=== PATIENT | female | born 1985 | race Caucasian/White ===

== ENCOUNTER → 2016-06-29 | Outpatient (CLI) | payer OTHER ==
[~2016-06-29] MED LIST: ACET50TA PO; IBUP600T26 PO; MOM30SS PO
[2016-06-29 20:34] LABS: BASO % 0.5 % (0.0-1.0); EOS # 0.4 K/mm3 (0.0-0.50); LARGE UNSTAINED CELL # 0.1 K/mm3 (0.0-0.4); LARGE UNSTAINED CELL % 1.6 % (0.0-4.0); LYMPH # 1.5 K/mm3 (1.5-4.5); LYMPH % 16.8 % (24.0-44.0); MEAN CORPUSCULAR HEMOGLOBIN 30.3 pg (27.0-33.0); MEAN CORPUSCULAR HGB CONC 34.2 g/dl (32.0-36.5); MEAN CORPUSCULAR VOLUME 88.8 fl (80.0-96.0); MONO # 0.3 K/mm3 (0.0-0.8); MONO % 3.7 % (0.0-5.0); NEUTROPHILS # 6.3 K/mm3 (1.8-7.7); NEUTROPHILS % 72.4 % (36.0-66.0); PLATELET COUNT, AUTOMATED 261 k/mm3 (150-450); RED CELL DISTRIBUTION WIDTH 11.7 % (11.5-14.5)
[2016-06-30 10:18] LABS: HIV SCRN NEGATIVE (NEGATIVE)
[2016-06-30 10:19] LABS: CONTROL LINE INT CTR LINE PRESENT; HIV SCRN1 NEGATIVE (NEGATIVE)
[2016-07-02 11:01] LABS: WHITE BLOOD COUNT 8.7 K/mm3 (4.0-10.0)
== END ==
LOC: M LRY 15:27
PROVIDERS: ATTEND Advanced Practice Midwife
DX: Z36 Encounter for antenatal screening of mother (principal)

== ENCOUNTER → 2016-07-11 | Outpatient (CLI) | payer OTHER ==
--- NOTE | 2016-07-12 04:39 | REP ---
Clinical: Anatomical evaluation. Comparison: None . Findings: Examination demonstrates a single live intrauterine in breech presentation. motion is identified by technologist. Placenta is noted anteriorly and grade zero without evidence for placenta previa or abruption. Amniotic fluid volume is normal. Cervix measures 4.1 cm in length and appears closed. No evidence for nuchal cord. Gestational age by LMP 16 weeks 3 days with CAMDEN 12/23/2016 . Gestational age by current measurements 17 weeks 1 day with [facility]DEN 12/18/2016 . FHR equals 153 beats per minute. BPD 3.7 cm 17 weeks 1 day HC 13.5 cm 17 weeks 0 days AC 11.5 cm 17 weeks 2 days FL 2.5 cm 17 weeks 4-day HL 2.3 cm 17 weeks 0 days HC/AC ratio 1.17 Estimated weight 191 grams ( 86 percentile). Anatomical assessment demonstrates normal structures including cranium, choroid plexus, cavum, cerebellum/posterior fossa, lungs, diaphragm, stomach, cord insertion/three-vessel cord, kidneys/bladder, spine, and extremities. Impression: Single live intrauterine in breech presentation demonstrating appropriate interval growth. Anatomical assessment is somewhat limited due to gestational age and repeat evaluation/follow-up may be warranted. Signed by German Mccarty MD 07/12/2016 04:30 A
== END ==
LOC: M SMT 15:01
PROVIDERS: ATTEND Advanced Practice Midwife
DX: Z36 Encounter for antenatal screening of mother (principal); Z3A.17 17 weeks gestation of pregnancy

== ENCOUNTER → 2016-08-06 | Outpatient (REF) | payer OTHER | LOC: M LAB REF 17:31 | PROVIDERS: ATTEND Advanced Practice Midwife | DX: Z34.82 Encounter for supervision of other normal pregnancy, second trimester (principal) ==

== ENCOUNTER → 2016-08-13 | Outpatient (CLI) | payer OTHER ==
--- NOTE | 2016-08-13 11:20 | REP ---
Clinical: Anatomical evaluation. Comparison: 07/11/2016. Findings: Examination demonstrates a single live intrauterine in variable presentation. motion is identified by technologist. Placenta is low-lying (approximately 2 cm from the closed internal os) and noted anteriorly and grade zero without evidence for placenta previa or abruption. Amniotic fluid volume is normal. Cervix measures 3.5 cm in length and appears closed. No evidence for nuchal cord. Gestational age by LMP 21 weeks 1 day with CAMDEN 12/23/2016 . Gestational age by current measurements 21 weeks for the with CAMDEN is 12/20/2016 . FHR equals 150 beats per minute. Estimated weight 466 grams ( 77th percentile). Anatomical assessment demonstrates normal structures including cranium, choroid plexus, cavum, cerebellum/posterior fossa, facial features, lungs, four-chamber heart/ventricular outflow tracts, diaphragm, stomach, cord insertion/three-vessel cord, kidneys/bladder, spine, and extremities. Impression: 1. Anterior grade zero low-lying placenta 2 cm from the closed internal os. 2. Fetus demonstrates appropriate interval growth and normal complete anatomical assessment. Signed by German Mccarty MD 08/13/2016 11:11 A
== END ==
LOC: M SMT 09:45
PROVIDERS: ATTEND Advanced Practice Midwife
DX: Z36 Encounter for antenatal screening of mother (principal); Z3A.21 21 weeks gestation of pregnancy

== ENCOUNTER → 2016-10-09 | Outpatient (CLI) | payer OTHER ==
[2016-10-09 13:21] LABS: MEAN CORPUSCULAR HEMOGLOBIN 30.5 pg (27.0-33.0); MEAN CORPUSCULAR HGB CONC 33.1 g/dl (32.0-36.5); MEAN CORPUSCULAR VOLUME 92.3 fl (80.0-96.0); RED CELL DISTRIBUTION WIDTH 12.6 % (11.5-14.5); WHITE BLOOD COUNT 9.8 K/mm3 (4.0-10.0)
== END ==
LOC: M SMT 08:27
PROVIDERS: ATTEND Advanced Practice Midwife
DX: Z36 Encounter for antenatal screening of mother (principal)

== ENCOUNTER → 2016-10-24 | Outpatient (CLI) | payer OTHER ==
--- NOTE | 2016-10-25 05:19 | REP ---
Clinical: Suspected placenta previa. Comparison: 08/13/2016 . Findings: Examination demonstrates a single live intrauterine in transverse presentation. motion is identified by technologist. Placenta is noted anteriorly and grade zero without evidence for placenta previa or abruption. Placental tip is 4.2 cm from the closed internal os. Amniotic fluid volume is normal. Cervix measures 3.6 cm in length and appears closed. FHR equals 141 beats per minute. Impression: Advanced gestation in transverse lie. Anterior placenta without evidence for placenta previa. Cervix measures 3.6 cm in length and appears closed. Signed by German Mccarty MD 10/25/2016 05:11 A
== END ==
LOC: M SMT 13:57
PROVIDERS: ATTEND Obstetrics & Gynecology
DX: Z34.83 Encounter for supervision of other normal pregnancy, third trimester (principal)

== ENCOUNTER 2016-12-27 05:38 | Inpatient (IN) | payer OTHER ==
[2016-12-27] VITALS (30 sets, daily range): BP systolic 88–157; BP diastolic 52–85; O2SAT 94–100
[~2016-12-27] VITALS: Ht 152.4 cm; Wt 74.3 kg
[2016-12-27] MEDS ORDERED: PRENTAB9 PO (06:03)
[2016-12-27] MEDS ORDERED: PENICILLIN G POTASSIUM IV 5 MU in D5W MINI-BAG PLUS 100 ML IV STA (06:12)
[2016-12-27 06:47] LABS: MEAN CORPUSCULAR HEMOGLOBIN 31.4 pg (27.0-33.0); MEAN CORPUSCULAR HGB CONC 34.9 g/dl (32.0-36.5); MEAN CORPUSCULAR VOLUME 89.9 fl (80.0-96.0); RED CELL DISTRIBUTION WIDTH 12.2 % (11.5-14.5); WHITE BLOOD COUNT 9.6 K/mm3 (4.0-10.0)
--- NOTE | 2016-12-27 06:47 | HPE ---
DATE OF ADMISSION: 12/27/2016 HISTORY OF PRESENT ILLNESS: Inocencia is a 31-year-old 3, para 1-0-1-1 at 40-4/7 weeks gestation with an estimated date of confinement (EDC) of 12/23/2016, based on last menstrual period and confirmed and supported by second trimester ultrasound. She presents to labor and delivery today with report of spontaneous rupture of membranes at 0430, reports the fluid is clear and does report some cramping prior to rupture and following rupture. There is no vaginal bleeding and the fetus has been active. care was initiated at [facility] in the second trimester. course complicated by group B streptococcus (GBS) bacteruria, low-lying placenta which resolved by the third trimester. OBSTETRICAL HISTORY: Spontaneous miscarriage, and then in January 2013, she had a spontaneous vaginal delivery for a live male at 42 weeks gestation weighing 8 pounds 12 ounces. OBSTETRICAL LABORATORIES: Blood type is A positive, antibody screen negative, rubella immune, VDRL nonreactive, GBS in the urine. Hepatitis B surface antigen negative, HIV negative. Hepatitis C antibody nonreactive, gonorrhea and chlamydia negative. Urine culture with no growth. She did decline genetic serum screening markers. Gestational diabetic screening normal at 102, and positive GBS as previously stated. PAST MEDICAL HISTORY: Seasonal allergies. Childhood varicella. FAMILY HISTORY: Diabetes, hypertension, heart disease, anxiety, brain tumor and brain aneurysm. SOCIAL HISTORY: The patient is . Her is at bedside and supportive. She is a nonsmoker. Denies alcohol and drug use. No history of any sexually transmitted infections. Denies history of abuse physical, sexual and emotional allergies. ALLERGIES: No known drug allergies CURRENT MEDICATIONS: vitamin OBJECTIVE: Temperature 98.4, pulse 88, blood pressure is 132/70. She is alert and oriented times three. She does not seem to be in any apparent distress. heart rate is 120 with moderate variability, positive accelerations, no decelerations, contractions every 4 minutes. She is grossly ruptured, appears to be clear fluid, potentially with mucus. Abdomen is gravid, cephalic presentation which was confirmed by bedside ultrasound. Estimated weight 8 pounds. Sterile vaginal exam 3-4 cm dilated, 50% effaced, and minus two station. ASSESSMENT: Intrauterine at 40-4/7 weeks gestation. heart rate category one. Premature rupture of membranes. PLAN: Admit the patient to labor and delivery. Labs. Out of bed ad edinson. Start intravenous (IV) antibiotics for group B streptococcus (GBS) prophylaxis. The patient does desire hydrotherapy and out of bed activity to cope with her labor physiologically. I do anticipate labor progress and a spontaneous vaginal delivery. Once she is treated appropriately for GBS, we will consider augmentation with IV Pitocin. MTDD
[2016-12-27] MEDS ORDERED: PENICILLIN G POTASSIUM IV 2.5 MU in D5W 100 ML IV SCH (11:00)
[2016-12-27] MEDS ORDERED: OXYTOCIN 30 UNITS IN 0.9% NaCl 500ML IV BAG (J2590) As Ordered ONE (11:52)
[2016-12-27] MEDS ORDERED: ceFAZolin 2 GM/D5W 50 ML IV BAG (J0690) As Ordered ONE (13:01)
[2016-12-27] MEDS ORDERED: BICITRA 30ML SOLN UDC As Ordered ONE (13:02)
[2016-12-27] MEDS ORDERED: PROPOFOL 200 MG/20 ML VIAL As Ordered ONE ×2 (13:14→16:56)
[2016-12-27] MEDS ORDERED: SUCCINYLCHOLINE 100 MG/5 ML SYRINGE (J0330) As Ordered ONE (13:14)
[2016-12-27] MEDS ORDERED: OXYTOCIN INJ 10 UNITS/ML VIAL (J2590) As Ordered ONE (13:14)
[2016-12-27] MEDS ORDERED: fentaNYL 100 MCG/2 ML INJECTION (J3010) As Ordered ONE ×4 (13:20→18:48)
[2016-12-27 13:28] LABS: CORD GAS ABE A -2.9; CORD GAS HCO3 A 24.7 MEQ/L; CORD GAS O2 SAT A 36.7 %; CORD GAS PH A 7.279 UNITS; CORD GAS PO2 A 18.6 mmHg; CORD GAS SBC A 20.5 MEQ/L; CORD GAS TCO2 A 26.4 MEQ/L
[2016-12-27 13:31] LABS: CORD GAS HCO3 V 22.2 MEQ/L; CORD GAS O2 SAT V 68.2 %; CORD GAS PCO2 V 44.5 mmHg; CORD GAS PH V 7.316 UNITS; CORD GAS PO2 V 29.2 mmHg; CORD GAS SBC V 20.4 MEQ/L; CORD GAS TCO2 V 23.6 MEQ/L
[2016-12-27] MEDS ORDERED: KETOROLAC 60 MG/2 ML VIAL (J1885) As Ordered ONE (13:31)
[2016-12-27] MEDS ORDERED: ONDANSETRON 4MG/2ML VIAL (J2405) As Ordered ONE (13:31)
[2016-12-27] MEDS ORDERED: LR 1,000 ML IV SCH ×2 (13:56→14:30)
[2016-12-27] MEDS ORDERED: DOCUSATE SODIUM 100 MG CAP PO PRN (14:00)
[2016-12-27] MEDS ORDERED: PERCOCET 5MG/325MG TAB PO PRN ×2 (14:00→14:30)
[2016-12-27] MEDS ORDERED: MEASLES,MUMPS,RUBELLA VACCINE INJ (MMR-II) (90707) SC SCH (14:00)
[2016-12-27] MEDS ORDERED: OXYTOCIN DRIP 30 UNITS in APPROPRIATE DILUENT 1 EA IV ONE (14:00)
[2016-12-27] MEDS ORDERED: RHOGAM 300 MCG (1500 IU) INJ (J2790) IM SCH (14:00)
[2016-12-27] MEDS ORDERED: NS 1,000 ML IV SCH ×3 (14:01→16:34)
[2016-12-27] MEDS ORDERED: EPIDURAL/PCA KEYS XX PRN (14:15)
[2016-12-27] MEDS ORDERED: MORPHINE 1MG/ML IN 0.9% NACL 100ML IV BAG IV PRN (14:15)
[2016-12-27] MEDS ORDERED: diphenhydrAMINE INJ 50MG/ML VIAL (J1200) IV PRN (14:15)
[2016-12-27] MEDS ORDERED: NALOXONE INJ 0.4 MG/1 ML VIAL (J2310) IV PRN (14:15)
[2016-12-27] MEDS ORDERED: NALBUPHINE HCL 10 MG/ML AMP (J2300) IV PRN (14:15)
[2016-12-27] MEDS ORDERED: MEPERIDINE INJ 25 MG/ML VIAL (J2175) As Ordered ONE (14:18)
[2016-12-27] MEDS: MEPERIDINE INJ 25 MG/ML VIAL (J2175) IV PRN ×2 (14:20→14:25)
[2016-12-27] MEDS ORDERED: ONDANSETRON 4MG/2ML VIAL (J2405) IV PRN (14:30)
[2016-12-27] MEDS ORDERED: HYDROmorphone HCL 1 MG/ML SYRINGE (J1170) IV PRN (14:30)
[2016-12-27] MEDS ORDERED: fentaNYL 100 MCG/2 ML INJECTION (J3010) IV PRN ×2 (14:30→19:15)
[2016-12-27] MEDS ORDERED: miSOPROStol 200 MCG TAB (S0191) As Ordered ONE (14:31)
[2016-12-27] MEDS ORDERED: METHYLERGONOVINE MALEATE 0.2 MG/ML VIAL (J2210) As Ordered ONE ×2 (14:31→15:22)
[2016-12-27] MEDS ORDERED: METHYLERGONOVINE MALEATE 0.2 MG/ML VIAL (J2210) IM ONE ×2 (15:00→17:00)
[2016-12-27] MEDS ORDERED: miSOPROStol 200 MCG TAB (S0191) PR ONE (15:00)
[2016-12-27 15:29] LABS: MEAN CORPUSCULAR HEMOGLOBIN 30.5 pg (27.0-33.0); MEAN CORPUSCULAR HGB CONC 33.1 g/dl (32.0-36.5); RED CELL DISTRIBUTION WIDTH 12.3 % (11.5-14.5); WHITE BLOOD COUNT 23.9 K/mm3 (4.0-10.0)
[2016-12-27] MEDS ORDERED: ceFAZolin 1GM INJ (J0690) As Ordered ONE (16:46)
[2016-12-27] MEDS ORDERED: LIDOCAINE 2% INJ 100 MG/5 ML SDV (FOR ANES.) As Ordered ONE (16:56)
[2016-12-27] MEDS ORDERED: ROCURONIUM BROMIDE 50 MG/5 ML VIAL/SYRINGE As Ordered ONE (16:56)
[2016-12-27] MEDS ORDERED: MIDAZOLAM INJ 2 MG/2 ML VIAL (J2250) As Ordered ONE (16:56)
[2016-12-27] MEDS ORDERED: PHENYLEPHRINE INJ 10MG/ML VIAL (J2370) As Ordered ONE (17:28)
[2016-12-27] MEDS ORDERED: PHENYLephrine HCL 500 MCG/5 ML (100MCG/ML) SYRINGE (J2370) As Ordered ONE (17:28)
[2016-12-27 18:28] LABS: ABG HCO3 11.6 MEQ/L (22.0-26.0); ABG PARTIAL PRESSURE CO2 41.6 mmHg (35.0-45.0); ABG PARTIAL PRESSURE O2 211.1 mmHg (75.0-100.0); ABG STANDARD HCO3 11.1 MEQ/L (22.0-26.0); ABG TOTAL CO2 12.9 MEQ/L (22.0-29.0)
[2016-12-27 18:31] LABS: ABG pH (ARTERIAL) 7.063 UNITS (7.350-7.450)
[2016-12-27] MEDS ORDERED: FUROSEMIDE 100 MG/10 ML VIAL (J1940) As Ordered ONE (18:45)
[2016-12-27 18:54] LABS: ADD MANUAL DIFFER YES; DIFF SLIDE NUMBER 313; MEAN CORPUSCULAR HEMOGLOBIN 29.2 pg (27.0-33.0); MEAN CORPUSCULAR HGB CONC 32.4 g/dl (32.0-36.5); MEAN CORPUSCULAR VOLUME 90.2 fl (80.0-96.0); PLATELET COUNT, AUTOMATED 144 k/mm3 (150-450); RED CELL DISTRIBUTION WIDTH 15.7 % (11.5-14.5); WHITE BLOOD COUNT 17.5 K/mm3 (4.0-10.0)
[2016-12-27 18:56] LABS: INR 1.64
[2016-12-27] MEDS: NOREPINEPHRINE BITARTRATE 8 MG in D5W 500 ML IV SCH (19:15)
[2016-12-27 19:18] LABS: ALBUMIN 1.4 GM/DL (3.2-5.2); ALBUMIN/GLOBULIN RATIO 0.82 (1.00-1.93); ALKALINE PHOSPHATASE 62 U/L (45-117); ALT/SGPT 121 U/L (12-78); ANION GAP 16 MEQ/L (8-16); AST/SGOT 155 U/L (15-37); BILIRUBIN,TOTAL 0.5 MG/DL (0.2-1.0); BLOOD UREA NITROGEN 9 MG/DL (7-18); CALCIUM LEVEL 10.4 MG/DL (8.5-10.1); CARBON DIOXIDE LEVEL 15 MEQ/L (21-32); CHLORIDE LEVEL 116 MEQ/L (98-107); CREATININE FOR GFR 0.92 MG/DL (0.55-1.02); GLOMERULAR FILTRATION RATE > 60.0 (>60); GLUCOSE, FASTING 314 MG/DL (70-105); MAGNESIUM LEVEL 2.2 MG/DL (1.8-2.4); POTASSIUM SERUM 4.4 MEQ/L (3.5-5.1); SODIUM LEVEL 147 MEQ/L (136-145); TOTAL PROTEIN 3.1 GM/DL (6.4-8.2)
[2016-12-27 19:30] LABS: ABG BASE EXCESS -14.5 (-2.0-2.0); ABG HCO3 14.6 MEQ/L (22.0-26.0); ABG PARTIAL PRESSURE CO2 45.8 mmHg (35.0-45.0); ABG STANDARD HCO3 13.4 MEQ/L (22.0-26.0)
[2016-12-27 19:33] LABS: ABG PARTIAL PRESSURE O2 49.1 mmHg (75.0-100.0); ABG pH (ARTERIAL) 7.122 UNITS (7.350-7.450)
[2016-12-27 19:37] LABS: ANISOCYTOSIS 1+; BANDS 13 % (< 11); NUCLEATED RED BLOOD CELL 2 % (0-0); POIKILOCYTOSIS 1+; POLYCHROMASIA 1+
[2016-12-27 19:38] LABS: ACANTHOCYTES 2+
[2016-12-27 19:39] LABS: OVALOCYTES 1+
[2016-12-27 19:53] LABS: ABG BASE EXCESS -10.7 (-2.0-2.0); ABG HCO3 16.2 MEQ/L (22.0-26.0); ABG PARTIAL PRESSURE CO2 39.2 mmHg (35.0-45.0); ABG PARTIAL PRESSURE O2 61.2 mmHg (75.0-100.0); ABG STANDARD HCO3 16.2 MEQ/L (22.0-26.0); ABG TOTAL CO2 17.4 MEQ/L (22.0-29.0)
[2016-12-27] MEDS: PIPERACILLIN/TAZOBACTAM SOD 3.375 GM in D5W MINI-BAG PLUS 50 ML IV SCH (19:55)
[2016-12-27 19:56] LABS: ABG pH (ARTERIAL) 7.233 UNITS (7.350-7.450)
[2016-12-27] MEDS ORDERED: KETOROLAC 30 MG/ML VIAL (J1885) IV SCH (20:00)
[2016-12-27] MEDS ORDERED: MORPHINE 2 MG/ML 1ML SYRINGE IV PRN (20:15)
--- NOTE | 2016-12-27 20:20 | REP ---
HISTORY: Stat section. COMPARISON: None. The tip of the endotracheal tube is in satisfactory position at the level of the clavicular heads. The nasogastric tube is seen coursing the esophagus and the tip is coiled within the stomach. There is near complete opacification of the right lung with scattered air bronchograms consistent with florid right-sided edema. More patchy appearing airspace opacities are seen throughout the left lung which was not completely imaged on this AP exam. The technique utilized in obtaining the radiograph has magnified the cardiac silhouette and accentuated the interstitial markings. The cardiomediastinal silhouette is within normal limits. The osseous structures are within normal limits. IMPRESSION: Asymmetric pulmonary edema, cause uncertain. Pneumonia versus cardiogenic causes versus renal causes. Correlate clinically. Signed by Antonio Gomez DO 12/28/2016 10:38 A
--- NOTE | 2016-12-27 20:26 | PHACANCOPD ---
PHARMACY VANCOMYCIN DOSING Pt Demographics Demographics Patient Age:31 , Weight:73.000 , Gender: female Adjusted Body Weight Date: 12/27/16, Adjusted Body Weight: Kg Events Past 24 Hours Events Past 24 Hours: NO: Dialysis, Diuretic Therapy, Change in CrCl, Fever, Elevation in WBC, Pending Diagnostics, Pending Procedures, Other Vancomycin Vancomycin indication: SEPSIS Vancomycin Target Ranges: 15-20 mcg/ml Vancomycin Load Y/N: Yes Load Dose Date Time Vancomycin Load Dose: 1500MG Date: Time: @2100 Vancomycin Dose Date: 12/28/16. Current Vancomycin Dose: [1000MG IV Q8H @ 0600] Intermittent Dosing?: No Labs Labs Item Value Date Time White Blood Count 17.5 K/mm3 H 12/27/16 0000 White Blood Count 9.6 K/mm3 12/27/16 0620 White Blood Count 23.9 K/mm3 H 12/27/16 1508 Creatinine 0.92 MG/DL 12/27/16 0000 Micro Microbiology 12/27/16 Blood Culture, Received Pending Creatinine Clearance Date:12/27/16. Creatinine Clearance: [82.2 MLS/MIN]. Pending Labs VANCO TROUGH 12/28/16 @ 2100 Assessment and Plan Maintaining Current Dose?: Yes Reason for dose change: No Dose Change Pharmacist Note Pharmacist Note Date: 12/27/16. Pharmacist note: Patient was given a 1500 mg loading dose @ 2100 followed by 1 gram q 8hours. Trough is scheduled to be drawn after 3 doses (01/07 @ 2100). Continue to monitor renal function and adjust dose as needed. [facility] Dec 27, 2016 20:26
[2016-12-27] MEDS ORDERED: MAGNESIUM SULFATE 1 GM/100 ML D5W BAG (10MG/ML) (J3475) ONE (20:28)
[2016-12-27] MEDS ORDERED: AMIODARONE 150MG/3ML INJ (J0282) ONE (20:28)
[2016-12-27] MEDS ORDERED: CALCIUM CHLORIDE 10% 1 GM/10 ML SYR ONE (20:28)
[2016-12-27] MEDS ORDERED: EPINEPHrine 1MG/10ML SYRINGE 1.5IN ONE (20:28)
[2016-12-27] MEDS ORDERED: NOREPINEPHRINE 4 MG/4 ML AMP ONE (20:28)
[2016-12-27] MEDS ORDERED: SODIUM BICARBONATE 8.4% INJ 50 ML SYRINGE ONE (20:28)
[2016-12-27 20:30] LABS: MEAN CORPUSCULAR HEMOGLOBIN 29.5 pg (27.0-33.0); MEAN CORPUSCULAR HGB CONC 33.3 g/dl (32.0-36.5); MEAN CORPUSCULAR VOLUME 88.5 fl (80.0-96.0); RED CELL DISTRIBUTION WIDTH 15.1 % (11.5-14.5)
[2016-12-27 20:31] LABS: WHITE BLOOD COUNT 33.2 K/mm3 (4.0-10.0)
[2016-12-27 20:33] LABS: INR 1.32
[2016-12-27] MEDS: MIDAZOLAM INJ 2 MG/2 ML VIAL (J2250) IV PRN ×3 (20:34→21:22)
--- NOTE | 2016-12-27 20:40 | RO ---
DATE OF PROCEDURE: 12/27/2016 PREPROCEDURE DIAGNOSIS: Hypovolemic shock. POSTPROCEDURE DIAGNOSIS: Hypovolemic shock. PROCEDURE: Emergent left internal jugular (IJ) triple lumen central line. SURGEON: Dr. Fadia Rivera HISTORY TUTOR: None ANESTHESIA: 1% local lidocaine. REASON FOR PROCEDURE: Shock. ESTIMATED BLOOD LOSS: 10 mL. SEDATION: 2 mg of Versed IV push. VENTILATION: Patient on a ventilator with AC volume control, 14, 400, 100%, PEEP of 8. DESCRIPTION OF PROCEDURE: The patient was placed in Trendelenburg position. The left side of the patient's neck was cleaned with Chloraprep. Time-out was done, and the patient was covered in a sterile fashion. Ultrasound with sterile probe cover was used. The patient's left IJ was located and 1% local lidocaine was injected subcutaneously with ultrasound guidance. Subsequently, needle was inserted with ultrasound guidance. Flash of blood was obtained. Guidewire was inserted through the needle and needle was removed. Guidewire position was confirmed with the ultrasound. Subsequently, the site was dilated and triple lumen central line was inserted via Seldinger technique over guidewire and guidewire was removed. Triple lumen central line was secured with clamps and stitches. Dressing was placed. X-ray was ordered for confirmation. The patient tolerated the procedure with no complication. LANDON
[2016-12-27] MEDS ORDERED: LR 1,000 ML IV ONE (20:45)
[2016-12-27] MEDS ORDERED: REFRIGERATOR IV KEYS XX PRN (20:45)
--- NOTE | 2016-12-27 20:50 | IPN ---
DATE: 12/27/2016 MAX CART NOTE TIME: 1748 Max cart called in the operating room (OR). Physician was told that patient previously earlier in the day had a section with persistent uterine bleed. Subsequently was taken to the OR for hysterectomy. In the process, patient went into ventricular tachycardia. Subsequently was shocked. On arrival, patient was in ventricular tachycardia with an arterial (A) line pressure of 200/110s. Amiodarone 300 mg intravenous (IV) push was given, 2 mg of magnesium was given. IV bolus was started as well as massive transfusion protocol was activated. At 175 patient went into pulseless electrical activity (PEA) with A-line tracing that lost blood pressure. Subsequently, cardiopulmonary resuscitation (CPR) was started. Epinephrine was given with return of spontaneous circulation on A-line tracing, and on palpation and with heart rhythm of supraventricular tachycardia (SVT). Mauro-Synephrine pressor was prepared but was on hold. Patient was given IV boluses and packed red blood cells (PRBC) transfusion. Fresh frozen plasma (FFP) and platelets have also been ordered as part of massive transfusion protocol, and surgery was proceeded. At 180 patient's A-line tracing lost pressure. Subsequently went into PEA. CPR started. One round of epinephrine was given with return of spontaneous circulation with heart rhythm of SVT. At 181, patient went into PEA again. Subsequently epinephrine was given. At this time, two rounds of epinephrine was given with return of spontaneous circulation as well. Surgery was continued. At 181, patient went into PEA again. Epinephrine was given as well as bicarbonate and calcium chloride, given patient has been receiving significant quantity of blood products. Calcium chloride was given. Patient had a return of spontaneous circulation with supraventricular tachycardia, at which time it was noticed that patient's endotracheal (ET) tube was putting out frothy, pink fluids. Patient was thought to be possibly in flash pulmonary edema given the amount of fluids and blood products that had been given, and with blood pressure after last resuscitation ranging at 160/100, Lasix 40 IV push was given. At 182, patient went into PEA again. Epinephrine was given. At this time, patient required a total of three rounds of epinephrine to have a return of spontaneous circulation. Sodium bicarbonate 1 amp was given along with calcium chloride. Patient subsequently had spontaneous return of circulation, at which point, with a blood pressure on A-line tracing of 150/110, all fluids and blood transfusion have been on hold given patient has been putting out pink, frothy secretions from the ET tube, believed to be in flash pulmonary edema. Lasix another 40 was given, and patient's incision had been closed at that point in preparation to be transferred to intensive care unit (ICU), persistently in supraventricular tachycardia. At 1859, patient had a dip of blood pressure. Subsequently 1 amp of epinephrine was given with blood pressure that is resolving. Subsequently Levophed 10 mcg was started. Patient was transferred to ICU. Around 1900 patient was transferred to ICU. At 1915, in the process, an emergent right cordis was placed for massive transfusion. Patient received approximately a total of 8 units PRBC, 2 units of FFP, and about 2 units of platelets.
[2016-12-27 21:00] LABS: BLOOD UREA NITROGEN 10 MG/DL (7-18); CREATININE FOR GFR 1.03 MG/DL (0.55-1.02); GLOMERULAR FILTRATION RATE > 60.0 (>60); GLUCOSE, FASTING 262 MG/DL (70-105); SODIUM LEVEL 144 MEQ/L (136-145)
[2016-12-27] MEDS ORDERED: VANCOMYCIN HCL 500 MG in D5W MINI-BAG PLUS 100 ML IV ONE (21:00)
[2016-12-27 21:16] LABS: ANION GAP 13 MEQ/L (8-16); CALCIUM LEVEL 9.1 MG/DL (8.5-10.1); CARBON DIOXIDE LEVEL 19 MEQ/L (21-32); CHLORIDE LEVEL 112 MEQ/L (98-107); MAGNESIUM LEVEL 1.8 MG/DL (1.8-2.4); PHOSPHORUS LEVEL 5.6 MG/DL (2.5-4.9)
[2016-12-27] MEDS: CHLORHEXIDINE GLUCONATE 0.12 % 15ML UDC (PERIDEX ORAL RINSE) MT SCH (21:23)
[2016-12-27] MEDS: MIDAZOLAM HCL 100 MG in D5W 80 ML IV SCH (21:30)
[2016-12-27] MEDS: LR 1,000 ML IV SCH (21:47)
[2016-12-27 21:54] LABS: ABG BASE EXCESS -8.9 (-2.0-2.0); ABG PARTIAL PRESSURE CO2 36.9 mmHg (35.0-45.0); ABG PARTIAL PRESSURE O2 55.8 mmHg (75.0-100.0); ABG STANDARD HCO3 17.3 MEQ/L (22.0-26.0); ABG TOTAL CO2 18.1 MEQ/L (22.0-29.0); ABG pH (ARTERIAL) 7.281 UNITS (7.350-7.450)
[2016-12-27] MEDS ORDERED: DEXTROSE 50% 50 ML SYRINGE IV PRN (22:15)
[2016-12-27] MEDS ORDERED: GLUCAGON FOR INJ 1 MG VIAL (J1610) SC PRN (22:15)
[2016-12-27] MEDS ORDERED: GLUCOSE 4 GM CHEW TABLET PO PRN (22:15)
[2016-12-27] MEDS: VANCOMYCIN HCL 1,000 MG, VIAL MATE ADAPTER 1 EACH in D5W 250 ML IV SCH (22:35)
[2016-12-27] MEDS: KCL 20MEQ IN 100ML SWI (KRUN) 20 MEQ in APPROPRIATE DILUENT 1 EA IV SCH ×4 (22:35→23:45)
--- NOTE | 2016-12-27 22:45 | RO ---
DATE OF PROCEDURE: 12/27/2016 PREPROCEDURE DIAGNOSIS: hemorrhages, associated cardiovascular changes. POSTPROCEDURE DIAGNOSIS: hemorrhages, associated cardiovascular changes. OPERATIVE PROCEDURE: Exploratory laparotomy. Supracervical hysterectomy. SURGEON: Víctor Coy MD BANKRUPTCY JUDGE: Yamil Shah MD ANESTHESIA: General endotracheal. ESTIMATED BLOOD LOSS: 2000 mL total (including time in the post anesthesia care unit (PACU) prior to surgery). FLUIDS: Including 6 units packed red blood cells. 2000 cc LR URINE OUTPUT: 300 mL. FINDINGS: Enlarged uterus. No bleeding from hysterotomy site. Normal ovaries and fallopian tubes. DESCRIPTION OF PROCEDURE: The patient taken to the operating room where general endotracheal anesthesia induced. She was prepped and draped in a sterile fashion in the dorsal lithotomy position. Prior to the onset of the laparotomy the patient went into ventricular tachycardia. This was recognized immediately and the patient underwent cardioversion. A code was commenced. A decision made to proceed emergently with a hysterectomy. Prior Pfannenstiel skin incision was opened. The fascia was opened. The uterus was exteriorized. The round ligament was grasped with Rebecca clamps, incised and suture ligated. A window was created in the peritoneum and the uteroovarian ligaments were clamped with Laura clamps, incised and suture ligated. The uterine vessels were clamped with Laura clamps and incised. A supracervical hysterectomy was performed by amputating the uterus at the level of the internal os. The cervical stump was oversewn with #0 Vicryl in a running locked fashion. A second imbricating layer of #0 Vicryl was placed. Good hemostasis was noted. All sites were inspected closely. The peritoneum was closed with #2-0 Vicryl in a running fashion. During code attempts the closure had to be stopped temporarily while chest compressions were performed and then the closure resumed. The fascia was closed with #0 Vicryl in a running fashion. The deep layer was irrigated. The skin was closed with jose. Sponge, needle and instrument counts were correct. MTDD
[2016-12-27] MEDS: ACETAMINOPHEN 325 MG/10.15 ML UDC GT PRN (23:29)
[2016-12-27] MEDS: MORPHINE 4 MG/ML 1ML SYRINGE IV PRN (23:30)
[2016-12-27 23:32] LABS: MEAN CORPUSCULAR VOLUME 82.8 fl (80.0-96.0); RED CELL DISTRIBUTION WIDTH 15.9 % (11.5-14.5); WHITE BLOOD COUNT 23.2 K/mm3 (4.0-10.0)
[2016-12-27] MEDS: ALBUTEROL SULFATE 2.5 MG/0.5 ML INH NEB SOLN NEB SCH (23:43)
[2016-12-27 23:51] LABS: INR 1.19
[2016-12-28] VITALS (73 sets, daily range): BP systolic 83–116; BP diastolic 51–89; O2SAT 92–99
[2016-12-28 00:01] LABS: ANION GAP 11 MEQ/L (8-16); BLOOD UREA NITROGEN 11 MG/DL (7-18); CALCIUM LEVEL 7.7 MG/DL (8.5-10.1); CARBON DIOXIDE LEVEL 20 MEQ/L (21-32); CHLORIDE LEVEL 109 MEQ/L (98-107); GLOMERULAR FILTRATION RATE > 60.0 (>60); GLUCOSE, FASTING 216 MG/DL (70-105); MAGNESIUM LEVEL 1.4 MG/DL (1.8-2.4); PHOSPHORUS LEVEL 2.7 MG/DL (2.5-4.9); POTASSIUM SERUM 4.6 MEQ/L (3.5-5.1); SODIUM LEVEL 140 MEQ/L (136-145)
[2016-12-28] MEDS: HumaLOG INSULIN (NovoLOG) PER UNIT SC SCH ×5 (00:18→23:39)
[2016-12-28] MEDS: MIDAZOLAM INJ 2 MG/2 ML VIAL (J2250) IV PRN ×3 (00:19→18:05)
--- NOTE | 2016-12-28 00:29 | CCN ---
DATE: 12/27/2016 CRITICAL CARE NOTE I was contacted by the nursing boat outfitting supervisor regarding a Max Cart that had been called in the operating room. I responded immediately and was in the operating room in approximately 15 minutes. Ms. Smith had had an emergency section earlier in the day with a persistent uterine bleed. Later in the afternoon, she was taken to the operating room for a hysterectomy. She went into ventricular tachycardia (v tach). Prior to my arrival, she had been given amiodarone 300 mg, 2 mg of magnesium, and shocked twice and was started on the massive hemorrhage transfusion protocol. She then went into pulseless electrical activity (PEA) and had been given 1 mg of epinephrine with return of spontaneous circulation and a heart rhythm of supraventricular tachycardia (SVT). This happened again (PEA) and cardiopulmonary resuscitation was started and one amp of epinephrine was given with return of spontaneous circulation and a heart rhythm of SVT. She had another episode where she went into PEA and cardiopulmonary resuscitation was started; this time, it took two rounds of epinephrine for spontaneous circulation to recur. She did this again and this time epinephrine was given several times as well as bicarbonate and calcium chloride. This happened another time when she went into PEA. Epinephrine was given three times, bicarbonate and calcium chloride. The hysterectomy was competed and bleeding was controlled. She had significant bloody secretions arise from the ET tube. It was felt that this was either flash pulmonary edema or disseminated intravascular coagulation (DIC). However, the labs came back not consistent with DIC, and it was felt this was flash pulmonary edema possibly from stunned myocardium. She was given 40 mg of Lasix in the operating room and had approximately 50 mL output. Just prior to transfer to the intensive care unit (ICU), she was given another 40 mg of Lasix and this time had a significant response. After we had observed hemodynamic stability for at least 10 minutes, we started the procedure of getting her ready to transfer directly to the intensive care unit. As the transfer was getting ready to start, she again had a decrease in her blood pressure and her pulses became thready. She was given an additional milligram of epinephrine and started on Levophed at 10 mcg. Then, she was successfully transferred to the intensive care unit. In the intensive care unit, she has remained on Levophed now at 20 mcg. Eventually, her right IJ Cordis was removed as it was a nonsterile placement in the operating room and a left IJ was placed. A CVP was able to be attained, which was 6. Repeat hemoglobin showed that she actually had been resuscitated to a hemoglobin of 15.9, though I suspect that some of that value is secondary to hemoconcentration from diuresis. She has had no further evidence of pulmonary edema. The ventilator was set with a PEEP of 8 and then 10 to help with oxygenation. However, after the chest x-ray was obtained and it was seen that it was predominantly right-sided process, her PEEP has been decreased as it was thought that we may be overdistending the left lung. Her FiO2 has been able to be weaned from 95% to 80%. She has awoken and appears to be opening her eyes to her parent's voice. Total resuscitation in the operating room was slightly less than 9 pRBCs, 3 units of fresh frozen plasma, 1 unit of platelets. The intake and output estimated at 5165 in and 3500 out of which 3200 was estimated blood loss. Ms. Smith had a healthy baby boy this morning and also has a healthy 4-year-old son. She has no significant past medical history. ALLERGIES: No known drug allergies. MEDICATIONS: vitamin. PHYSICAL EXAMINATION: Temperature 96.3, pulse in the 160s, respiratory rate at 29, SpO2 98% on an FiO2 of 0.8. HEENT: Anicteric. Pupils 5 mm and reactive. Nares: Patent bilaterally. Left nasogastric (NG) tube in place. Oropharynx: Moist mucosa. Endotracheal (ET) tube in place. NECK: Supple, without thyromegaly or masses. There was a right Cordis and a left IJ in place, so could not assess jugular venous pressure (JVP). LYMPHS: Without cervical or supraclavicular lymphadenopathy. LUNGS: Symmetric excursion. No evidence on examination of dyssynchrony. No crepitus. There are bilateral basilar crackles, slightly greater on the right posteriorly. No wheeze, no rhonchi. Normal I:E. CARDIOVASCULAR: Tachycardic. Regular rhythm. Normal S1, S2. No murmur, rub or gallop appreciated. ABDOMEN: Absent bowel sounds. Mild distention but soft. Discoloration of the skin. The dressing is clean, dry and intact. EXTREMITIES: Lower extremities are cool without clubbing, cyanosis or edema. Palpable pedal pulses bilaterally. LABORATORY DATA: Most recent CBC showed a hemoglobin of 15.9, hematocrit of 47.7 , platelet count 171,000 and white blood cell count 33,200. Chemistries at the same time (1929) showed a sodium of 144, potassium 3.0, chloride 112, bicarbonate 19, anion gap 13, BUN 10, creatinine 1.03, glucose 262 , calcium 9.1, phosphorus 5.6, magnesium 1.8. Lactic acid was 6.9. INR was 1.32 with a PTT of 38.4. Her most recent arterial blood gas at 1950 on [facility] with a tidal volume of 400, PEEP of 10 and rate of 18 was 7.23/39/61 with a measured saturation of 91% and a base excess of -10.7. I reviewed her chest x-ray as well as her report. That CXR showed normal appearing cardiac silhouette and pulmonary vascular shadow. The ET tube is at the level of the clavicles, approximately 4 cm above the arely. There was patchy airspace disease scattered in the left and near complete opacification of the right side. There were air bronchograms present on both sides. IMPRESSION: 1. Acute respiratory failure postoperatively. She has a markedly abnormal chest x-ray, and I suspect that this is asymmetric pulmonary edema with perhaps some blood pooling posteriorly on the right. I was in the operating room with her, and she was tipped to the right when she was being suctioned the majority of times, so I suspect this is atypical just secondary to positioning and gravity. I also saw that at times it was almost rasta blood being suctioned out. I suspect that there is some heme present in the lungs. 2. Hypotension. I suspect that her hypotension now is secondary to hypovolemia. She has had tremendous response to the second dosage of Lasix and her CVP is only 6. I also anticipate that she is third spacing as well. 3. Status post multiple arrests while in the operating room thought in large part secondary to massive hemorrhage. All of these arrests were short in duration and the majority were PEA as regards to rhythm. 4. Massive hemorrhage secondary to uterine bleed. 5. Infectious disease (ID), on Zosyn and vancomycin. 6. Deep vein thrombosis (DVT) prophylaxis in place with sequential compression devices (SCDs) and thromboembolism deterrents (TEDs). 7. Stress ulcer prophylaxis in place with a proton pump inhibitor. RECOMMENDATIONS: 1. We will try decreasing her PEEP given the unilarity of her chest x-rays and possible overdistending the left lung (this was done and she was taken to a PEEP of 5 and she desaturated, showing that she is PEEP dependent. At bedside, she appeared to do best on a PEEP of 8). 2. She has been placed on broad-spectrum antibiotics and will continue these for the immediate future until blood cultures are negative. She is presently on vancomycin and Zosyn. 3. We will follow a low tidal volume lung protective ventilator strategy. On this strategy, her 6 mL per kg predicted body weight would be 273 mL and her 7 mL per kg value is 326. 4. Given her "soft" blood pressures, we will use Versed for sedation, and I have requested that that be kept at 2 mg per hour with the use of boluses as needed. 5. Will use morphine boluses for pain control. 6. Will replace electrolytes as indicated. I have updated her parents and her . Critical care time: 3 hours and 30 minutes, some of which was during the acute code (approximately 1 hour) and the remainder was in the intensive care unit. LANDON
[2016-12-28] MEDS ORDERED: LR 1,000 ML IV ONE (01:00)
[2016-12-28] MEDS: NOREPINEPHRINE BITARTRATE 8 MG in D5W 500 ML IV SCH ×13 (02:05→22:00)
[2016-12-28 03:59] LABS: MEAN CORPUSCULAR HEMOGLOBIN 28.7 pg (27.0-33.0); MEAN CORPUSCULAR HGB CONC 34.2 g/dl (32.0-36.5); MEAN CORPUSCULAR VOLUME 83.8 fl (80.0-96.0); RED CELL DISTRIBUTION WIDTH 16.5 % (11.5-14.5); WHITE BLOOD COUNT 12.4 K/mm3 (4.0-10.0)
[2016-12-28] MEDS: PIPERACILLIN/TAZOBACTAM SOD 3.375 GM in D5W MINI-BAG PLUS 50 ML IV SCH ×3 (04:00→20:21)
[2016-12-28] MEDS: ALBUTEROL SULFATE 2.5 MG/0.5 ML INH NEB SOLN NEB SCH ×6 (04:04→23:30)
[2016-12-28 04:45] LABS: MEAN CORPUSCULAR HEMOGLOBIN 29.4 pg (27.0-33.0); MEAN CORPUSCULAR HGB CONC 35.6 g/dl (32.0-36.5); MEAN CORPUSCULAR VOLUME 82.5 fl (80.0-96.0); RED CELL DISTRIBUTION WIDTH 16.4 % (11.5-14.5); WHITE BLOOD COUNT 20.3 K/mm3 (4.0-10.0)
[2016-12-28] MEDS: MORPHINE 4 MG/ML 1ML SYRINGE IV PRN ×6 (04:59→21:23)
[2016-12-28 05:49] LABS: ABG BASE EXCESS -1.5 (-2.0-2.0); ABG HCO3 21.5 MEQ/L (22.0-26.0); ABG PARTIAL PRESSURE CO2 31.5 mmHg (35.0-45.0); ABG PARTIAL PRESSURE O2 53.4 mmHg (75.0-100.0); ABG TOTAL CO2 22.5 MEQ/L (22.0-29.0); ABG pH (ARTERIAL) 7.452 UNITS (7.350-7.450)
[2016-12-28] MEDS: ACETAMINOPHEN 325 MG/10.15 ML UDC GT PRN (05:51)
[2016-12-28] MEDS: VANCOMYCIN HCL 1,000 MG, VIAL MATE ADAPTER 1 EACH in D5W 250 ML IV SCH ×3 (05:51→22:03)
[2016-12-28 06:09] LABS: ANION GAP 9 MEQ/L (8-16); BLOOD UREA NITROGEN 12 MG/DL (7-18); CALCIUM LEVEL 7.3 MG/DL (8.5-10.1); CARBON DIOXIDE LEVEL 24 MEQ/L (21-32); CHLORIDE LEVEL 107 MEQ/L (98-107); CREATININE FOR GFR 1.07 MG/DL (0.55-1.02); GLOMERULAR FILTRATION RATE > 60.0 (>60); GLUCOSE, FASTING 111 MG/DL (70-105); PHOSPHORUS LEVEL 1.5 MG/DL (2.5-4.9); POTASSIUM SERUM 4.2 MEQ/L (3.5-5.1); SODIUM LEVEL 140 MEQ/L (136-145)
[2016-12-28 06:10] LABS: MAGNESIUM LEVEL 1.2 MG/DL (1.8-2.4)
[2016-12-28] MEDS: MAG SULF 1GM/100ML (MAG RUN) 1 GM in APPROPRIATE DILUENT 1 EA IV SCH ×2 (07:44→08:58)
[2016-12-28] MEDS: PANTOPRAZOLE 40MG INJ (PROTONIX) (C9113) IV SCH (08:58)
[2016-12-28] MEDS: CHLORHEXIDINE GLUCONATE 0.12 % 15ML UDC (PERIDEX ORAL RINSE) MT SCH ×2 (08:59→20:21)
[2016-12-28] MEDS ORDERED: POTASSIUM PHOSPHATE INJ 18 MMOL in D5W 250 ML IV ONE (09:00)
[2016-12-28] MEDS: PRENATAL VITAMINS CHEWABLE TABLET PO SCH (09:00)
[2016-12-28] MEDS ORDERED: NS 1,000 ML IV ONE (09:15)
--- NOTE | 2016-12-28 09:16 | REP ---
PORTABLE CHEST X-RAY: Single view. HISTORY: Endotracheal tube. Comparison study December 27, 2016. FINDINGS: An endotracheal tube is seen in good position at the level of the transverse aorta. An NG tube enters the left upper quadrant gastric fundus region. The side-hole of the NG tube appears to be at the level of the gastroesophageal junction. A left internal jugular central venous line is seen with its tip in the expected location of the superior vena cava. EKG monitoring electrodes and oxygen delivery tubing are seen. There is persistent extensive hazy alveolar opacity in the right lung. Multiple air bronchograms are seen however these have decreased in number. The consolidation may be slightly improved on the right. There is new slight blunting of the right lateral pleural angle consistent with some degree of pleural fluid. The perihilar markings in the left lung are improved today. No new infiltrate is seen. Cardiomediastinal silhouette is unchanged. IMPRESSION: Slight improvement with extensive persistent right lung consolidation and air bronchograms. Small amount of right pleural fluid. Improved perihilar markings on the left. Signed by Alan Tipton MD 12/28/2016 11:33 A
[2016-12-28 10:21] LABS: ALBUMIN 1.7 GM/DL (3.2-5.2); ALBUMIN/GLOBULIN RATIO 0.65 (1.00-1.93); ALKALINE PHOSPHATASE 68 U/L (45-117); ALT/SGPT 140 U/L (12-78); AST/SGOT 223 U/L (15-37); BILIRUBIN,TOTAL 0.6 MG/DL (0.2-1.0); TOTAL PROTEIN 4.3 GM/DL (6.4-8.2)
[2016-12-28 12:53] LABS: ANION GAP 8 MEQ/L (8-16); BLOOD UREA NITROGEN 12 MG/DL (7-18); CALCIUM LEVEL 6.9 MG/DL (8.5-10.1); CARBON DIOXIDE LEVEL 24 MEQ/L (21-32); CHLORIDE LEVEL 108 MEQ/L (98-107); CREATININE FOR GFR 0.94 MG/DL (0.55-1.02); GLOMERULAR FILTRATION RATE > 60.0 (>60); GLUCOSE, FASTING 120 MG/DL (70-105); MAGNESIUM LEVEL 1.9 MG/DL (1.8-2.4); POTASSIUM SERUM 4.4 MEQ/L (3.5-5.1); SODIUM LEVEL 140 MEQ/L (136-145)
--- NOTE | 2016-12-28 15:09 | RO ---
DATE OF PROCEDURE: 12/27/2016 PREOPERATIVE DIAGNOSES: 40-4/7 weeks gestation, labor. Prolonged bradycardia. POSTOPERATIVE DIAGNOSES: 40-4/7 weeks gestation, labor. Prolonged bradycardia. PROCEDURE: Emergency low transverse section. SURGEON: Víctor Coy MD METHODS EXAMINER: ANESTHESIA: General endotracheal. ESTIMATED BLOOD LOSS: 600 mL. FINDINGS: 3830 gram or 8 pound 9 ounce female infant, Apgars 8 and 9. Left occiput posterior position. Normal uterus, fallopian tubes and ovaries. OPERATIVE SUMMARY: The patient was taken emergently to the operating room where general endotracheal anesthesia was induced. She was prepped in a sterile fashion. Agudelo catheter was not placed at the beginning of the procedure due to the emergent nature of the procedure. Pfannenstiel skin incision was made and carried through to the fascia. The rectus muscles were divided. The peritoneal cavity was entered bluntly. A curvilinear incision was made in the lower uterine segment until light meconium stained fluid was noted. This was extended manually. The infant was delivered from the vertex position without difficulty. The cord was doubly clamped and cut. The was handed off to awaiting adult high school instructor. The placenta was expressed. The uterus exteriorized and cleared of clots and debrit. Uterine incision was closed with #0 Vicryl in a running locked fashion. A second imbricated layer of #0 Vicryl was placed. The uterus was placed back in the abdominal cavity. The patient received IV Pitocin immediately after delivery of the placenta. The peritoneum was closed with #2-0 Vicryl in a running fashion. The fascia was closed with #0 Vicryl in a running fashion. The subcutaneous tissue was irrigated and the skin was closed with #4-0 Monocryl subcuticular sutures. No sponge count was performed. An abdominal x-ray was negative at the end of the procedure for any retained foreign objects. Agudelo catheter was placed at the end of the procedure. The patient was extubated and went to the recovery room in stable condition. LANDON
[2016-12-28] MEDS: MIDAZOLAM HCL 100 MG in D5W 80 ML IV SCH (20:45)
[2016-12-28] MEDS: LR 1,000 ML IV SCH ×2 (21:20→23:25)
--- NOTE | 2016-12-28 21:57 | PHACANCOPD ---
PHARMACY VANCOMYCIN DOSING Pt Demographics Demographics Patient Age:31 , Weight:74.800 , Gender: female Adjusted Body Weight Date: 12/27/16, Adjusted Body Weight: Kg Events Past 24 Hours Events Past 24 Hours: NO: Dialysis, Diuretic Therapy, Change in CrCl, Fever, Elevation in WBC, Pending Diagnostics, Pending Procedures, Other Vancomycin Vancomycin indication: SEPSIS Vancomycin Target Ranges: 15-20 mcg/ml Vancomycin Load Y/N: Yes Load Dose Date Time Vancomycin Load Dose: 1500MG Date: Time: @2100 Vancomycin Dose Date: 12/28/16. Current Vancomycin Dose: [1000MG IV Q8H @ 0600] Intermittent Dosing?: No Labs Labs Item Value Date Time White Blood Count 20.3 K/mm3 H 12/28/16 0433 Creatinine 0.94 MG/DL 12/28/16 1226 Vancomycin Level Trough 15.4 UG/ML 12/28/16 2107 Micro Microbiology 12/27/16 Blood Culture - Preliminary, Resulted No growth after 24 hours . All specim... 12/27/16 Blood Culture - Preliminary, Resulted No growth after 24 hours . All specim... Creatinine Clearance Date:12/27/16. Creatinine Clearance: [82.2 MLS/MIN]. Assessment and Plan Maintaining Current Dose?: Yes Reason for dose change: No Dose Change Pharmacist Note Pharmacist Note Date: 12/27/16. Pharmacist note: Trough of 15.4 is within target range. will continue current dosing. Will continue to monitor and make adjustments as needed. OTONIEL DONG PHARMACY Dec 28, 2016 21:57
[2016-12-28] MEDS ORDERED: IBUPROFEN 800 MG TAB PO SCH (22:00)
[2016-12-28] MEDS ORDERED: POTASSIUM PHOSPHATE INJ 15 MMOL in D5W 250 ML IV ONE (22:00)
[2016-12-29] VITALS (37 sets, daily range): BP systolic 87–126; BP diastolic 50–75; O2SAT 96–99
[2016-12-29] MEDS: MORPHINE 4 MG/ML 1ML SYRINGE IV PRN ×2 (02:14→04:42)
--- NOTE | 2016-12-29 02:26 | CCN ---
DATE OF SERVICE: 12/28/2016 NOTE: Ms. Smith remains critically ill with acute respiratory failure postoperatively. She remains on vasopressor therapy. She is still quite hypoxemic. She has not had any further pulmonary edema findings overnight. She did have a fever with a maximum temperature (T-max) of 101.2. On sedation vacation, she is alert, awake and following commands. OBJECTIVE: PHYSICAL EXAMINATION: GENERAL: Ms. Smith is intubated and synchronous with the ventilator. VITAL SIGNS: Temperature 100.4, with a T-max of 101.2, respiratory rate 28, blood pressure 95/51 with a mean arterial pressure (MAP) of 66, pulse 142, SpO2 is 96% on an FiO2 of 0.5. HEENT: Anicteric. Pupils equal and reactive to light. Nares: [place] bilaterally. Right nasogastric (NG) tube in place. Oropharynx: Endotracheal (ET) tube in place. NECK: Supple, bandage on the right side of the neck where the introducer had been. The left internal jugular (IJ) site is clean. LUNGS: Symmetric excursion, good air entry, decreased crackles posteriorly bilaterally, no significant rhonchi, no wheezes. Normal inspiratory to expiratory (I to E). No accessory muscle usage or retractions. CARDIOVASCULAR: Regular rate and rhythm with a normal S1, S2. No murmur, rub or gallop appreciated. ABDOMEN: Diminished bowel sounds, but they are occasionally present. Soft, nondistended, dressing clean and dry. EXTREMITIES: Cool. Without clubbing, cyanosis. Trace edema is present both in the hands and feet. Palpable pedal pulses bilaterally. LABORATORY DATA: CBC from this morning showed a hemoglobin of 13.3, hematocrit of 37.3, platelet count 128,000, white blood cell count 20,300. Chemistry showed sodium 140, potassium 4.4, chloride 108, bicarbonate 24, anion gap 8, BUN 12, creatinine 0.9, glucose 120, calcium 6.9, magnesium 1.9. These are from noon today. INR from this morning was 1.19. Arterial blood gas on [facility] with a tidal volume of 300, rate of 18, PEEP of 8, and a FiO2 of 0.5 was 7.45/32/53 with a measured saturation of 90% and a base excess of -1.5. I reviewed her chest x-ray from earlier today and the report. That showed normal-appearing cardiac silhouette and pulmonary vascular shadows. There remained bilateral infiltrates greater on the right with slight improvement on both sides. The endotracheal tube is in good position. IMPRESSION: 1. Acute respiratory failure postoperatively leading to mechanical ventilation. 2. Pulmonary edema intraoperatively felt likely secondary to stunned myocardium. No signs of recurrence. 3. Abnormal chest x-ray, which likely represents atypical pulmonary edema and I also suspect there is some heme present in the alveoli. 4. Status post multiple cardiac arrests secondary to massive hemorrhage. No recurrence since repletion and elimination of the source of bleeding. 5. Hypotension felt secondary to hypovolemia. Slowly being able to wean vasopressor support. 6. Infectious disease (ID). Is on vancomycin and Zosyn. 7. Deep venous thrombosis (DVT) prophylaxis with sequential compression devices (SCDs). 8. Nutrition: Currently nothing by mouth. RECOMMENDATIONS: 1. Will continue to wean her ventilatory support as tolerated. I would initially start with weaning her oxygen down as tolerated. If she is stable on 40%, then I would start weaning the PEEP. 2. Continue to wean the Levophed. 3. Anticipate that she may require a few more fluid boluses, particularly as ongoing third spacing from her surgery is anticipated for the next 24-48 hours. 4. Will continue her current antibiotics (vancomycin and Zosyn). 5. Anticipate that she may continue to have occasional fevers. If she spikes greater than 101.5, will culture. 6. Will not start tube feedings today given minimal bowel sounds and recent pelvic surgery; however, if she is not extubated tomorrow, will start them at that time. Her father and were updated. Critical care time: 45 minutes not including procedure time. [facility]
[2016-12-29] MEDS: NOREPINEPHRINE BITARTRATE 8 MG in D5W 500 ML IV SCH (02:41)
[2016-12-29] MEDS: PIPERACILLIN/TAZOBACTAM SOD 3.375 GM in D5W MINI-BAG PLUS 50 ML IV SCH ×3 (03:26→20:03)
[2016-12-29] MEDS: ALBUTEROL SULFATE 2.5 MG/0.5 ML INH NEB SOLN NEB SCH ×5 (03:52→19:57)
[2016-12-29 04:58] LABS: ALBUMIN 1.3 GM/DL (3.2-5.2); ALBUMIN/GLOBULIN RATIO 0.59 (1.00-1.93); ALKALINE PHOSPHATASE 74 U/L (45-117); ALT/SGPT 67 U/L (12-78); ANION GAP 7 MEQ/L (8-16); AST/SGOT 101 U/L (15-37); BILIRUBIN,TOTAL 0.4 MG/DL (0.2-1.0); BLOOD UREA NITROGEN 10 MG/DL (7-18); CALCIUM LEVEL 6.8 MG/DL (8.5-10.1); CARBON DIOXIDE LEVEL 26 MEQ/L (21-32); CHLORIDE LEVEL 107 MEQ/L (98-107); CREATININE FOR GFR 0.87 MG/DL (0.55-1.02); GLOMERULAR FILTRATION RATE > 60.0 (>60); GLUCOSE, FASTING 114 MG/DL (70-105); MAGNESIUM LEVEL 1.7 MG/DL (1.8-2.4); PHOSPHORUS LEVEL 2.5 MG/DL (2.5-4.9); POTASSIUM SERUM 4.3 MEQ/L (3.5-5.1); SODIUM LEVEL 140 MEQ/L (136-145); TOTAL PROTEIN 3.5 GM/DL (6.4-8.2)
[2016-12-29] MEDS: HumaLOG INSULIN (NovoLOG) PER UNIT SC SCH ×2 (05:18→12:00)
[2016-12-29] MEDS: VANCOMYCIN HCL 1,000 MG, VIAL MATE ADAPTER 1 EACH in D5W 250 ML IV SCH ×3 (05:37→21:54)
--- NOTE | 2016-12-29 07:54 | REP ---
Clinical: Endotracheal tube placement. Comparison: 12/28/2016. Findings: Endotracheal tube appears 1 cm from the arely and may warrant repositioning. Nasogastric tube courses below left hemidiaphragm. Left subclavian line with tip in the SVC. Bilateral infiltrates (right greater than left) and possible layering effusion are again appreciated and may be minimally improved. No pneumothorax. Skeletal structures stable. Impression: Endotracheal tube warrants reevaluation and appears 1 cm from the arely. Bilateral infiltrates/opacities (right greater than left) may be slightly improved. Signed by German Mccarty MD 12/29/2016 07:45 A
[2016-12-29] MEDS ORDERED: MAG SULF 1GM/100ML (MAG RUN) 1 GM in APPROPRIATE DILUENT 1 EA IV ONE (08:00)
[2016-12-29 08:22] LABS: MEAN CORPUSCULAR HGB CONC 34.4 g/dl (32.0-36.5); MEAN CORPUSCULAR VOLUME 84.4 fl (80.0-96.0); RED CELL DISTRIBUTION WIDTH 16.9 % (11.5-14.5); WHITE BLOOD COUNT 14.7 K/mm3 (4.0-10.0)
[2016-12-29] MEDS: CHLORHEXIDINE GLUCONATE 0.12 % 15ML UDC (PERIDEX ORAL RINSE) MT SCH (08:48)
[2016-12-29] MEDS: PANTOPRAZOLE 40MG INJ (PROTONIX) (C9113) IV SCH (08:48)
[2016-12-29] MEDS: PRENATAL VITAMINS CHEWABLE TABLET PO SCH (09:00)
[2016-12-29] MEDS ORDERED: PROPOFOL 1,000 MG in APPROPRIATE DILUENT 1 EA IV SCH (11:30)
[2016-12-29] MEDS ORDERED: FUROSEMIDE 20 MG/2 ML VIAL (J1940) IV ONE (12:00)
[2016-12-29] MEDS: ACETAMINOPHEN 325 MG/10.15 ML UDC GT PRN (12:15)
[2016-12-29] MEDS ORDERED: MORPHINE 4 MG/ML 1ML SYRINGE IV PRN (14:30)
[2016-12-29] MEDS ORDERED: ALBUTEROL SULFATE 2.5 MG/0.5 ML INH NEB SOLN NEB PRN (14:30)
[2016-12-29] MEDS: PERCOCET 5MG/325MG TAB PO PRN ×3 (16:00→23:40)
--- NOTE | 2016-12-29 22:41 | CCN ---
DATE: 12/29/2016 NOTE: Ms. Smith remains critically ill with acute respiratory failure postoperatively, leading to mechanical ventilation. Her Levophed was able to be weaned off around 11:00 p.m. This morning, her PEEP was decreased from 8 to 5. After she did well with that change for several hours, she was changed to pressure support and with the pressure support eventually being decreased to 5 over PEEP of 5. She was placed on a 30 minute trial. However, over the last 10 minutes or so, her rapid shallow rate increased and was consistently in the mid 120s and she was therefore deemed not extubatable and changed back over to pressure support of 12 over PEEP of 5. Her sedation was changed from Versed to Propofol, as her blood pressure was acceptable. She was alert, awake and following commands during her sedation holiday. OBJECTIVE: PHYSICAL EXAMINATION: VITAL SIGNS: Temperature 98.1, pulse 129, respiratory rate 24, blood pressure 105/63 with a MAP of 77, SpO2 of 98% on FiO2 of 0.3. Maximum temperature (t-max) was 99.0. HEENT: Anicteric. Pupils equal, round, and reactive to light and accommodation. Nares: Patent bilaterally. Left nasogastric tube in place. Oropharynx: Endotracheal tube in place. NECK: Supple. Bandage over the previous right cordis location. Left internal jugular clear. LUNGS: Symmetric excursion. Good air entry. End inspiratory squeak at the right base posteriorly. Scattered but decreased crackles. No wheeze. No other rhonchi. Normal I:E. No accessory muscle usage of retractions. CARDIOVASCULAR: Tachycardic. Regular rhythm. Normal S1, S2. No murmur, rub or gallop appreciated. ABDOMEN: Positive but diminished bowel sounds. Soft. Nondistended. EXTREMITIES: Warm and well perfused. Trace to 1+ nonpitting edema at both upper and lower extremities. LABORATORY DATA: Chemistry showed a sodium of 140, potassium 4.3, chloride 107, bicarbonate 26, anion gap 7, BUN 10, creatinine 0.9, glucose 114, calcium 6.8, phosphorous 2.5, magnesium 1.7, total bilirubin 0.4, AST 101, ALT 67, alkaline phosphatase 74, total protein 3.5, albumin 1.7. Complete blood count (CBC) shows a hemoglobin of 9.8, hematocrit 28.5, platelet count is 96,000, white blood cell count 14,700. I reviewed her chest x-ray, as well as her report. That x-ray showed normal appearing cardiac silhouette. Pulmonary vascular shadows. There remained bilateral improving infiltrates, greater on the right than the left. There are no longer air bronchograms present. Endotracheal tube, in my view, is 2 cm above the arely. IMPRESSION: 1. Acute respiratory failure postoperatively leading to mechanical ventilation. 2. Flash pulmonary edema, felt secondary to stunned myocardium and significant blood products, resolved. 3. Abnormal chest x-ray felt secondary to represent heme and pulmonary edema, improving. 4. Massive hemorrhage secondary to uterine bleed, resolved. 5. Status post multiple cardiac arrests intraoperatively, no recurrence or any arrhythmia since arriving in the intensive care unit (ICU). 6. Infectious disease. On vancomycin and Zosyn prophylactically. Cultures remain negative to date. 7. Deep vein thrombosis (DVT) prophylaxis with sequential compression device (SCD) and thromboembolic compression stockings (TEDS). 8. Stress ulcer prophylaxis with proton pump inhibitor. RECOMMENDATIONS: 1. As her hypotension has resolved, we will try gentle diuresis. 2. Depending upon the response to diuresis, we will retry weaning her this afternoon. 3. Continue other medications. 4. Her parents were updated with the findings. ADDENDUM: She had greater than 1 liter response to 20 mg of Lasix. She was therefore placed back on a weaning trial of a pressure support of 5 over 5 for around 40 minutes. On this trial, her rapid shallow breathing index was around 85. She had a strong cough and a gag and it was felt that she would be able to handle her secretions. Propofol was stopped and she was allowed to wake up for 10 or 15 minutes. She was then able to spontaneously increase her tidal volume to around 800 mL. It was felt that she would be able to tolerate extubation and she was successfully extubated. She is currently on a aerosol mask and doing well. I have spoken to respiratory therapy and we need to be very aggressive with hyperinflation therapy. I am concerned because of pain, both in her chest from CPR and her recent surgery, that she will tend to splint and we need to be very aggressive to prevent any complications from her pulmonary edema and heme and inflammation in her lung parenchyma. I therefore spoke to respiratory therapy and we will defer to their expertise regarding modalities. Acceptable modalities would include IS, Acapella, EZ-PAP, vest, CPAP for 10 minutes or other. We will continue to give her nebulized bronchodilators, this may help as mucous ciliary escalator and help her with expectoration. Critical care time: 55 minutes this morning in evaluation of her first trial. Additional 25 minutes in evaluation of her second trial. MTDD
[2016-12-30] VITALS (8 sets, daily range): BP systolic 108–130; BP diastolic 57–75; O2SAT 99
[2016-12-30] MEDS: PIPERACILLIN/TAZOBACTAM SOD 3.375 GM in D5W MINI-BAG PLUS 50 ML IV SCH ×2 (04:14→12:25)
[2016-12-30] MEDS: PERCOCET 5MG/325MG TAB PO PRN ×5 (05:20→21:00)
[2016-12-30] MEDS: VANCOMYCIN HCL 1,000 MG, VIAL MATE ADAPTER 1 EACH in D5W 250 ML IV SCH (05:20)
[2016-12-30 05:40] LABS: BASO % 0.3 % (0.0-1.0); EOS # 0.3 K/mm3 (0.0-0.50); LARGE UNSTAINED CELL # 0.1 K/mm3 (0.0-0.4); LARGE UNSTAINED CELL % 0.6 % (0.0-4.0); LYMPH # 1.4 K/mm3 (1.5-4.5); LYMPH % 12.1 % (24.0-44.0); MEAN CORPUSCULAR HEMOGLOBIN 29.9 pg (27.0-33.0); MEAN CORPUSCULAR HGB CONC 34.8 g/dl (32.0-36.5); MONO # 0.2 K/mm3 (0.0-0.8); MONO % 1.8 % (0.0-5.0); NEUTROPHILS # 9.1 K/mm3 (1.8-7.7); NEUTROPHILS % 82.2 % (36.0-66.0); PLATELET COUNT, AUTOMATED 129 k/mm3 (150-450); RED CELL DISTRIBUTION WIDTH 16.5 % (11.5-14.5)
[2016-12-30 06:06] LABS: ALBUMIN 1.4 GM/DL (3.2-5.2); ALBUMIN/GLOBULIN RATIO 0.56 (1.00-1.93); ALKALINE PHOSPHATASE 167 U/L (45-117); ALT/SGPT 61 U/L (12-78); ANION GAP 6 MEQ/L (8-16); AST/SGOT 89 U/L (15-37); BILIRUBIN,TOTAL 0.6 MG/DL (0.2-1.0); BLOOD UREA NITROGEN 12 MG/DL (7-18); CARBON DIOXIDE LEVEL 28 MEQ/L (21-32); CHLORIDE LEVEL 107 MEQ/L (98-107); CREATININE FOR GFR 1.01 MG/DL (0.55-1.02); GLOMERULAR FILTRATION RATE > 60.0 (>60); GLUCOSE, FASTING 68 MG/DL (70-105); PHOSPHORUS LEVEL 3.1 MG/DL (2.5-4.9); SODIUM LEVEL 141 MEQ/L (136-145); TOTAL PROTEIN 3.9 GM/DL (6.4-8.2)
[2016-12-30] MEDS: ALBUTEROL SULFATE 2.5 MG/0.5 ML INH NEB SOLN NEB SCH ×3 (08:27→15:24)
--- NOTE | 2016-12-30 08:36 | REP ---
Clinical: Follow up infiltrates. Comparison: 12/29/2016. Findings: Previously noted endotracheal tube and nasogastric tube have been removed. Left central line with tip in the SVC stable. Bilateral infiltrates are again identified but may be slightly improved when compared to prior examination. Improved aeration is suggested. No pneumothorax. Skeletal structures stable. Impression: Bilateral infiltrates with mildly improved aeration suggested. Signed by German Mccarty MD 12/30/2016 08:28 A
[2016-12-30] MEDS: PRENATAL VITAMINS CHEWABLE TABLET PO SCH (08:52)
[2016-12-30] MEDS ORDERED: ACETAMINOPHEN TAB 650MG DOSE (2X325MG) PO PRN (14:00)
[2016-12-30] MEDS: LR 1,000 ML IV SCH ×2 (15:35→23:35)
[2016-12-30] MEDS ORDERED: ONDANSETRON 4MG/2ML VIAL (J2405) IV PRN (15:45)
[2016-12-30] MEDS ORDERED: DOCUSATE SODIUM 100 MG CAP PO PRN (15:45)
--- NOTE | 2016-12-30 19:00 | REPUSA ---
Clinical history: Pain, swelling. Findings: The common femoral, superficial femoral, popliteal, and other deep venous structures compre ss normally and demonstrate normal color Doppler flow. Normal venous waveforms with augmentation are seen. Impression: No evidence of deep vein thrombosis in the femoral popliteal venous system.
[2016-12-31] VITALS (7 sets, daily range): BP systolic 111–130; BP diastolic 65–86
[2016-12-31] MEDS: PERCOCET 5MG/325MG TAB PO PRN ×5 (00:37→22:43)
[2016-12-31 04:25] LABS: BASO % 0.1 % (0.0-1.0); EOS # 0.5 K/mm3 (0.0-0.50); EOS % 5.4 % (0.0-3.0); LARGE UNSTAINED CELL # 0.1 K/mm3 (0.0-0.4); LARGE UNSTAINED CELL % 1.4 % (0.0-4.0); LYMPH # 1.7 K/mm3 (1.5-4.5); MEAN CORPUSCULAR HEMOGLOBIN 29.2 pg (27.0-33.0); MEAN CORPUSCULAR HGB CONC 33.5 g/dl (32.0-36.5); MEAN CORPUSCULAR VOLUME 87.1 fl (80.0-96.0); MONO # 0.3 K/mm3 (0.0-0.8); MONO % 3.4 % (0.0-5.0); NEUTROPHILS # 6.3 K/mm3 (1.8-7.7); NEUTROPHILS % 71.6 % (36.0-66.0); PLATELET COUNT, AUTOMATED 172 k/mm3 (150-450); RED CELL DISTRIBUTION WIDTH 16.5 % (11.5-14.5); WHITE BLOOD COUNT 8.7 K/mm3 (4.0-10.0)
[2016-12-31 04:49] LABS: ALBUMIN 1.5 GM/DL (3.2-5.2); ALBUMIN/GLOBULIN RATIO 0.48 (1.00-1.93); ALKALINE PHOSPHATASE 165 U/L (45-117); ALT/SGPT 54 U/L (12-78); ANION GAP 7 MEQ/L (8-16); AST/SGOT 64 U/L (15-37); BILIRUBIN,TOTAL 0.5 MG/DL (0.2-1.0); BLOOD UREA NITROGEN 16 MG/DL (7-18); CALCIUM LEVEL 7.4 MG/DL (8.5-10.1); CARBON DIOXIDE LEVEL 27 MEQ/L (21-32); CHLORIDE LEVEL 108 MEQ/L (98-107); CREATININE FOR GFR 1.02 MG/DL (0.55-1.02); GLOMERULAR FILTRATION RATE > 60.0 (>60); GLUCOSE, FASTING 71 MG/DL (70-105); POTASSIUM SERUM 3.7 MEQ/L (3.5-5.1); SODIUM LEVEL 142 MEQ/L (136-145); TOTAL PROTEIN 4.6 GM/DL (6.4-8.2)
--- NOTE | 2016-12-31 06:01 | ECHO ---
DATE OF PROCEDURE: 12/30/2016 REFERRING PHYSICIAN: Dr. Verna Tobias. INDICATION: HEIGHT: 60 inches. WEIGHT: 163 pounds. 2D MEASUREMENTS: Aortic root: 2.8 cm Left atrium: 2.9 cm Ventricular septum: 0.94 cm Posterior wall: 0.91 cm Left ventricle diastole: 4.8 cm Left ventricle systole: 3.8 cm Inferior vena cava: 1.8 cm DOPPLER MEASUREMENTS: Aortic valve velocity: 155 cm/s LVOT velocity: 170 cm/s LVOT VTI: 29.1 cm Very mild mitral regurgitation. Mitral E velocity: 110 cm/s Mitral A velocity: 102 cm/s Mild tricuspid regurgitation Estimated right ventricular systolic pressure 40 mmHg assuming an atrial pressure of 10 mmHg. Mild pulmonic regurgitation. Pulmonary artery systolic pressure 44 mmHg by pulmonary acceleration time method. MITRAL ANNULAR TISSUE DOPPLER: E-prime lateral: 14.4 cm/s E-prime septal: 14.4 cm/s DESCRIPTION: Rhythm was sinus. This was a 2D, M-mode, color flow Doppler and pulsed wave examination and included mitral annular tissue Doppler. No pericardial effusion. CONCLUSIONS: 1. Normal left ventricle internal dimensions and wall thickness. Normal regional LV wall motion and wall thickening. Normal LV systolic function. LVEF 65% by visual estimate. Normal LV diastolic function. 2. Suggestive of moderate elevation of pulmonary artery systolic pressure and estimated right ventricle systolic pressure. Dilated proximal ascending aorta 3.5 cm. 3. Tiny pericardial effusion. 4. Bilateral pleural effusions.
[2016-12-31] MEDS: PRENATAL VITAMINS CHEWABLE TABLET PO SCH (10:08)
[2016-12-31] MEDS: IBUPROFEN 800 MG TAB PO SCH ×2 (14:13→21:42)
[2017-01-01] MEDS: PERCOCET 5MG/325MG TAB PO PRN ×5 (02:43→19:10)
[2017-01-01 03:50] VITALS: BP 138/84
[2017-01-01] MEDS: IBUPROFEN 800 MG TAB PO SCH ×3 (05:52→21:41)
[2017-01-01 08:00] VITALS: BP 129/81
[2017-01-01 08:20] LABS: BASO % 0.1 % (0.0-1.0); EOS # 0.3 K/mm3 (0.0-0.50); EOS % 3.3 % (0.0-3.0); LARGE UNSTAINED CELL # 0.1 K/mm3 (0.0-0.4); LARGE UNSTAINED CELL % 1.7 % (0.0-4.0); LYMPH # 1.8 K/mm3 (1.5-4.5); LYMPH % 19.7 % (24.0-44.0); MEAN CORPUSCULAR HEMOGLOBIN 30.3 pg (27.0-33.0); MEAN CORPUSCULAR HGB CONC 34.3 g/dl (32.0-36.5); MEAN CORPUSCULAR VOLUME 88.2 fl (80.0-96.0); MONO # 0.3 K/mm3 (0.0-0.8); NEUTROPHILS # 5.9 K/mm3 (1.8-7.7); NEUTROPHILS % 71.3 % (36.0-66.0); PLATELET COUNT, AUTOMATED 241 k/mm3 (150-450); RED CELL DISTRIBUTION WIDTH 16.4 % (11.5-14.5); WHITE BLOOD COUNT 8.3 K/mm3 (4.0-10.0)
[2017-01-01] MEDS: PRENATAL VITAMINS CHEWABLE TABLET PO SCH (08:52)
--- NOTE | 2017-01-01 09:29 | REP ---
PORTABLE CHEST: AP portable view of the chest is performed and compared to a prior study of 12/30/2016. Mild bibasilar infiltrates have improved compared to the prior exam. Heart is mildly enlarged. Left central venous catheter has been removed. IMPRESSION: Mild bibasilar infiltrates improving since prior study. Signed by Fidel Mclain MD 01/01/2017 04:24 P
[2017-01-01 09:49] LABS: ALBUMIN 1.7 GM/DL (3.2-5.2); ALBUMIN/GLOBULIN RATIO 0.63 (1.00-1.93); ALKALINE PHOSPHATASE 137 U/L (45-117); ALT/SGPT 45 U/L (12-78); ANION GAP 7 MEQ/L (8-16); AST/SGOT 45 U/L (15-37); BILIRUBIN,TOTAL 0.4 MG/DL (0.2-1.0); BLOOD UREA NITROGEN 15 MG/DL (7-18); CALCIUM LEVEL 7.5 MG/DL (8.5-10.1); CARBON DIOXIDE LEVEL 27 MEQ/L (21-32); CHLORIDE LEVEL 108 MEQ/L (98-107); CREATININE FOR GFR 0.74 MG/DL (0.55-1.02); GLOMERULAR FILTRATION RATE > 60.0 (>60); GLUCOSE, FASTING 77 MG/DL (70-105); POTASSIUM SERUM 3.7 MEQ/L (3.5-5.1); SODIUM LEVEL 142 MEQ/L (136-145); TOTAL PROTEIN 4.4 GM/DL (6.4-8.2)
[2017-01-01 12:00] VITALS: BP 118/75
[2017-01-01 16:00] VITALS: BP 124/75
[2017-01-01] MEDS ORDERED: SLF 3 ML SYR IV PRN (16:00)
[2017-01-01 20:00] VITALS: BP 129/64
[2017-01-01] MEDS: SLF 3 ML SYR IV SCH (21:41)
[2017-01-02] VITALS: BP 140/78
[2017-01-02] MEDS: PERCOCET 5MG/325MG TAB PO PRN ×2 (00:16→12:54)
[2017-01-02 04:00] VITALS: BP 126/83
[2017-01-02] MEDS: SLF 3 ML SYR IV SCH (06:12)
[2017-01-02] MEDS: IBUPROFEN 800 MG TAB PO SCH (06:12)
[2017-01-02 06:56] LABS: BASO % 0.2 % (0.0-1.0); EOS # 0.3 K/mm3 (0.0-0.50); EOS % 3.9 % (0.0-3.0); LARGE UNSTAINED CELL # 0.1 K/mm3 (0.0-0.4); LARGE UNSTAINED CELL % 1.6 % (0.0-4.0); LYMPH # 1.6 K/mm3 (1.5-4.5); LYMPH % 17.8 % (24.0-44.0); MEAN CORPUSCULAR HEMOGLOBIN 29.8 pg (27.0-33.0); MEAN CORPUSCULAR HGB CONC 33.4 g/dl (32.0-36.5); MEAN CORPUSCULAR VOLUME 89.2 fl (80.0-96.0); MONO # 0.3 K/mm3 (0.0-0.8); MONO % 3.7 % (0.0-5.0); NEUTROPHILS % 72.7 % (36.0-66.0); PLATELET COUNT, AUTOMATED 310 k/mm3 (150-450); RED CELL DISTRIBUTION WIDTH 16.5 % (11.5-14.5); WHITE BLOOD COUNT 8.3 K/mm3 (4.0-10.0)
[2017-01-02 07:30] LABS: ALBUMIN 1.7 GM/DL (3.2-5.2); ALBUMIN/GLOBULIN RATIO 0.52 (1.00-1.93); ALKALINE PHOSPHATASE 140 U/L (45-117); ALT/SGPT 40 U/L (12-78); ANION GAP 9 MEQ/L (8-16); AST/SGOT 42 U/L (15-37); BILIRUBIN,TOTAL 0.4 MG/DL (0.2-1.0); BLOOD UREA NITROGEN 13 MG/DL (7-18); CALCIUM LEVEL 7.7 MG/DL (8.5-10.1); CARBON DIOXIDE LEVEL 25 MEQ/L (21-32); CHLORIDE LEVEL 107 MEQ/L (98-107); CREATININE FOR GFR 0.75 MG/DL (0.55-1.02); GLOMERULAR FILTRATION RATE > 60.0 (>60); GLUCOSE, FASTING 76 MG/DL (70-105); POTASSIUM SERUM 3.3 MEQ/L (3.5-5.1); SODIUM LEVEL 141 MEQ/L (136-145)
[2017-01-02 08:00] VITALS: BP 132/79
[2017-01-02] MEDS: PRENATAL VITAMINS CHEWABLE TABLET PO SCH (08:55)
[2017-01-02] MEDS ORDERED: OXYC1TAB23 PO (10:53)
[2017-01-02] MEDS ORDERED: IBUP-1022 PO (10:54)
[2017-01-02] MEDS ORDERED: ALBU17IN INH (10:57)
[2017-01-02] MEDS ORDERED: COLA100C5 PO (11:14)
[2017-01-02] MEDS ORDERED: TYLE325C PO (11:14)
[2017-01-02] MEDS ORDERED: MOTR200T44 PO (11:14)
--- NOTE | 2017-01-07 11:51 | REP ---
REPEAT DICTATION KUB, SINGLE VIEW: HISTORY: Stat . No surgical count. FINDINGS: No metallic or other radiopaque foreign body is seen. Evidence of enlarged uterus is seen. Ileus pattern in the bowel gas. IMPRESSION: No opaque foreign body noted. Signed by Alan Tipton MD 01/07/2017 04:22 P
== END 2017-01-02 13:15 | disposition home or self-care (01) | DRG 765 ==
LOC: M LDO 05:38 → M LDI 05:57 → M OBS 15:33 → M ICU 19:14 → M PED 12-31 17:00
PROVIDERS: ADMIT Advanced Practice Midwife; ATTEND Specialist
PROC: 0UT90ZZ Resection of Uterus, Open Approach (ICD-10-PCS; 2016-12-27)
PROC: 02HV33Z Insertion of Infusion Device into Superior Vena Cava, Percutaneous Approach (ICD-10-PCS; 2016-12-27)
PROC: 30233N1 Transfusion of Nonautologous Red Blood Cells into Peripheral Vein, Percutaneous Approach (ICD-10-PCS; 2016-12-27)
PROC: 30233K1 Transfusion of Nonautologous Frozen Plasma into Peripheral Vein, Percutaneous Approach (ICD-10-PCS; 2016-12-27)
PROC: 30233R1 Transfusion of Nonautologous Platelets into Peripheral Vein, Percutaneous Approach (ICD-10-PCS; 2016-12-27)
PROC: 5A1945Z Respiratory Ventilation, 24-96 Consecutive Hours (ICD-10-PCS; 2016-12-27)
PROC: 10D00Z1 Extraction of Products of Conception, Low, Open Approach (ICD-10-PCS; principal; 2016-12-27 13:55)
DX: O48.0 Post-term pregnancy (principal); O75.1 Shock during or following labor and delivery; R57.1 Hypovolemic shock; J81.0 Acute pulmonary edema; I46.9 Cardiac arrest, cause unspecified; J95.821 Acute postprocedural respiratory failure; O99.43 Diseases of the circulatory system complicating the puerperium; O72.1 Other immediate postpartum hemorrhage; I47.2 Ventricular tachycardia; O99.824 Streptococcus B carrier state complicating childbirth; Z37.0 Single live birth; Z3A.40 40 weeks gestation of pregnancy; Z83.3 Family history of diabetes mellitus; Z82.49 Family history of ischemic heart disease and other diseases of the circulatory system; Z81.8 Family history of other mental and behavioral disorders; Z82.0 Family history of epilepsy and other diseases of the nervous system; Z79.899 Other long term (current) drug therapy; O75.4 Other complications of obstetric surgery and procedures; O76 Abnormality in fetal heart rate and rhythm complicating labor and delivery; O77.0 Labor and delivery complicated by meconium in amniotic fluid; I95.9 Hypotension, unspecified; O99.53 Diseases of the respiratory system complicating the puerperium

== ENCOUNTER → 2017-02-04 | Outpatient (CLI) | payer OTHER ==
[~2017-02-04] MED LIST changes: +ALBU17IN INH; +COLA100C5 PO; +IBUP-1022 PO; +MOTR200T44 PO; +OXYC1TAB23 PO; +PRENTAB9 PO; +TYLE325C PO
--- NOTE | 2017-02-04 15:56 | REP ---
Chest x-ray: Two views: History: Abnormal lung findings. Comparison study: 01/01/2017. Findings: The lungs are symmetrically aerated and free of infiltrate today. Pleural angles are sharp. Heart size is normal. There are however multiple healing rib fractures visible today involving the anterior aspects of the right 3rd, 4th, 6th, and 7th ribs. Healing fractures are noted on the left involving rib numbers 3, 4, 5, and 6 as well. Impression: No active cardiopulmonary disease. Multiple healing bilateral anterior rib fractures. Signed by Alan Tipton MD 02/04/2017 04:09 P
== END ==
LOC: M SMT 14:24
PROVIDERS: ATTEND Internal Medicine Pulmonary Disease
DX: R91.8 Other nonspecific abnormal finding of lung field (principal); S22.41XD Multiple fractures of ribs, right side, subsequent encounter for fracture with routine healing; X58.XXXD Exposure to other specified factors, subsequent encounter; Y92.9 Unspecified place or not applicable; Y93.9 Activity, unspecified; Y99.8 Other external cause status

== ENCOUNTER → 2017-11-17 | Outpatient (REF) | payer OTHER | LOC: M SFHCLERA 11:43 | DX: J02.9 Acute pharyngitis, unspecified (principal) ==

== ENCOUNTER → 2018-02-04 | Outpatient (REF) | payer OTHER ==
[2018-02-06 14:16] LABS: HPV HYBRID CAPTURE II Negative (Negative)
== END ==
LOC: M LAB REF 18:30
DX: Z12.4 Encounter for screening for malignant neoplasm of cervix (principal)

== ENCOUNTER → 2018-03-28 | Outpatient (REF) | payer OTHER ==
[2018-03-28 18:05] LABS: CHLAMYDIA DNA AMPLIFICATION NEGATIVE (NEGATIVE); GC DNA AMPLIFICATION NEGATIVE (NEGATIVE)
== END ==
LOC: M SFHCLERA 10:25
DX: R53.81 Other malaise (principal); R30.0 Dysuria

== ENCOUNTER → 2018-06-07 | Outpatient (REF) | payer OTHER | LOC: M SFHCLERA 14:57 | PROVIDERS: ATTEND Physician Assistant | DX: R30.0 Dysuria (principal) ==

== ENCOUNTER → 2018-07-16 | Outpatient (REF) | payer OTHER ==
[2018-07-16 13:54] LABS: HCG, SERUM QUALITATIVE NEGATIVE (NEGATIVE)
[2018-07-16 14:42] LABS: H PYLORI QUALITATIVE IgG NEGATIVE (NEGATIVE)
[2018-07-16 15:24] LABS: FREE T4 0.99 NG/DL (0.76-1.46)
[2018-07-16 17:02] LABS: FREE T3 3.1 PG/ML (2.2-4.0)
== END ==
LOC: M LAB REF 13:11
PROVIDERS: ATTEND Nurse Practitioner Adult Health
DX: E10.9 Type 1 diabetes mellitus without complications (principal); N91.2 Amenorrhea, unspecified

== ENCOUNTER → 2019-05-09 | Outpatient (CLI) | payer OTHER ==
[~2019-05-09] MED LIST changes: -ACET50TA PO; +MAPA500T17 PO
--- NOTE | 2019-05-09 14:04 | REP ---
Chest x-ray: Two views. History: Cough and fever . Comparison study: February 04, 2017 . Findings: The lungs are well inflated and free of infiltrate. The pleural angles are sharp. The heart size is normal. Pulmonary vasculature is not increased. No significant bony abnormality is seen. There are several old healed rib fractures on the each side. Impression: Old bilateral rib fractures. Otherwise negative chest x-ray. Electronically Signed by Alan Tipton MD 05/09/2019 01:55 P
== END ==
LOC: M LRY 12:38
PROVIDERS: ATTEND Nurse Practitioner
DX: R05 Cough (principal); R50.9 Fever, unspecified

== ENCOUNTER → 2020-07-07 | Outpatient (CLI) | payer SELFPAY | LOC: M LABSMTC 11:20 | PROVIDERS: ATTEND Pediatrics | DX: Z20.822 Contact with and (suspected) exposure to COVID-19 (principal) ==

== ENCOUNTER 2020-07-10 08:14 | Emergency (ER) | payer OTHER, SELFPAY ==
[~2020-07-10] VITALS: Ht 152.4 cm; Wt 53.3 kg
[2020-07-10] MEDS ORDERED: FLON1SPR NARES (08:23)
--- OUTSIDE RECORDS SUMMARY | 2020-07-10 08:23 | CCD | Continuity of Care Document ---
Author Author Kristan Solorio Organization Unknown Address [address] [address] Phone [phone] Care Team Providers Care Load Dropper Name Role Phone Cary Solorio AUTM [phone] Problems Description No Information Available Social History Type Date Description Comments Sex Unknown ETOH Use Rarely consumes alcohol Tobacco Use Start: Unknown Patient has never smoked Allergies, Adverse Reactions, Alerts Description No Known Drug Allergies Medications Active Medications SIG Qnty Indications Ordering Provide r Date Sulfamethoxazole-Trimethoprim 200-40mg/5ML Suspension 20 milliliters twice a day for 7 days 280ml STEPAN Chávez 03/28/2020 Zyrtec Allergy 10mg Tablets 1 by mouth every day 90tabs STEPAN Rodriguez 12/05/2018 Flonase Allergy Relief 50mcg/Act Suspension 2 sprays per nostril every in the morning as needed 47.4ml STEPAN Rodriguez 01/31/2017 Drisdol [id number] Capsules take 1 capsule by mouth weekly 16caps STEPAN Rodriguez 10/13/2014 Multivitamins With Iron Capsules 1 by mouth every day Unknown Proair HFA 108(90Base) mcg/Act Aer osol 2 puffs four times a day as needed Unknown Medications Administered in Office Medication SIG Qnty Indications Ordering Provider Date Immunization Adminstration,1 Vaccine/Tox oid Injection STEPAN Rodriguez 020 Administration Of Flu Vaccine Inj ection STEPAN Rodriguez 05/02/2005 Immunizations CPT Code Status Date Vaccine Lot # [id number] Given 03/28/2020 Influenza Vaccin e Quadrivalent Preser/Antibiotic Free Im Use [id number] Given 05/02/2005 Influenza Virus Vaccine Vital Signs Date Vital Result Comment 03/28/2020 3:26pm BP Systolic 116 mmHg BP Diastolic 80 mmHg Heart Rate 124 /min Body Temperature 98.4 F Height 60 inches 5'0" Weight 113.00 lb O2 % BldC Oximetry 98 % BMI (Body Mass Index) 22.1 kg/m2 07/20/2019 8:41am BP Systolic 124 mmHg BP Diastolic 80 mmHg Heart Rate 91 /min Height 60 inches 5'0" Weight 116.00 lb O2 % BldC Oximetry 98 % BMI (Body Mass Index) 22.7 kg/m2 Results Test Acquired Date Facility Test Result H/L Range Note Laboratory test finding 03/28/[address] [id number] [phone] Blood Culture No growth after <SEE NOTE> 1 Laboratory test finding 03/28/[address] [address] [phone] Blood Culture No growth after <SEE NOTE> 2 Complete Blood Count 03/28/2020 [facility] [employer] Architect: [place] [address] [phone] WBC 6.8 x10*3/UL 4.1 - 10.9 RBC 4.44 x10*6/UL 4.20 - 6.30 Hemoglobin 13.1 g/dL 12.0 - 18.0 Hematocrit 37.7 % 37.0 - 51.0 MCV 85.1 fL 80.0 - 97.0 MCH 29.6 pg 26.0 - 32.0 MCHC 34.8 g/dL 31.0 - 38.0 RDW 12.0 % 11.6 - 13.7 PLT 329 x10*3/UL 140 - 440 MPV 8.2 FL 7.8 - 11.0 Lymph % 23.1 % 10.0 - 58.5 Mid % 7.0 % 1.7 - 9.3 Neut % 69.9 % 37.0 - 92.0 Lymph # 1.5 x10*3/UL 0.6 - 4.1 Mid # 0.5 x10*3/UL 0.1 - 0.6 Neut # 4.8 x10*3/UL 2.0 - 7.8 Comprehensive Chem Profile 03/28/2020 [facility] [employer] Architect: [place] [address] [phone] Glucose 94 mg/dL 74 - 99 3 BUN 15 mg/dL 7 - 18 Creatinine 1.1 mg/dL 0.6 - 1.3 Sodium 138 mEq/L 136 - 145 Potassium 3.4 mEq/L Low 3.5 - 5.1 Chloride 100 mEq/L 98 - 107 Carbon Dioxide 26 mEq/L 21 - 32 Calcium 8.6 mg/dL 8.5 - 10.1 Alk. Phosphatase 51 mg/dL 46 - 116 Total Bilirubin 0.3 mg/dL 0.2 - 1.0 Ast (Sgot) 17 U/L 15 - 37 Alt (SGPT) 21 U/L 12 - 78 Albumin 4.4 g/dL 3.4 - 5.0 Total Protein 8.8 g/dL High 6.4 - 8.2 A/G Ratio 1.00 CALC 1.00 - 1.90 GFR 57 mL/min Low >60 GFR >= 60 mL/min >60 4 1 No growth after 72 hours . A ll specimens observed for 5 days. Results final at that time. No growth after 48 hours . All specimens observed for 5 days. Results final at that time. No growth after 24 hours . All specimens observed for 5 days. Results final at that time. NO GROWTH AFTER 5 DAYS 2 No growth after 72 hours . A ll specimens observed for 5 days. Results final at that time. No growth after 48 hours . All specimens observed for 5 days. Results final at that time. No growth after 24 hours . All specimens observed for 5 days. Results final at that time. NO GROWTH AFTER 5 DAYS 3 100-125 mg/dL PRE-DIABET ES/FASTING >126 mg/dL DIABETES/FASTING 4 CHRONIC KIDNEY DISEASE STAGI NG PER NKF STAGE I & II GFR >= 60 NORMAL TO MILDLY DECREASED STAGE III GFR 30-59 MODERATELY DECREASED STAGE IV GFR 15-29 SEVERELY DECREASED STAGE V GFR <15 VERY LITTLE GFR LEFT ESRD GFR <15 ON CRANKSHAFT GRINDER Procedures Description No Information Available Medical Devices Description No Information Available Encounters Type Date Location Provider Dx Diagnosis Office Visit 03/28/2020 3:15p [facility] STEPAN Rodriguez L03.818 Cellulitis of other sites Z23 Encounter for immunization Assessments Date Code Description Provider 03/28/2020 L03.818 Cellulitis of other sites STEPAN Rodriguez 03/28/2020 Z23 Encounter for immunization STEPAN Rodriguez Plan of Treatment Future Appointment(s):* 07/21/2020 8:00 am - [facility] Rodriguez [facility] [place] 03/28/2020 - STEPAN Rodriguez* L03.818 Cellulitis of other sites * Z23 Encounter for immunization * All * New Medication:* Sulfamethoxazole-Trimethoprim 200-40 mg/5ML - 20 milliliters twice a day for 7 days Functional Status Description No Information Available Mental Status Description No Information Available Referrals Description No Information Available
--- OUTSIDE RECORDS SUMMARY | 2020-07-10 08:23 | CCD ---
Author Author [facility] Organization [facility] Address Unknown Phone Unavailable Care Team Providers Care Traffic Routing Engineer Name Role Phone Bijan Pope MD Unavailable Unavailable Bijan Pope MD Unavailable Unavailable Bijan Pope MD Unavailable Unavailable Bijan Pope MD Unavailable Unavailable Bijan Pope MD Unavailable Unavailable Bijan Pope MD Unavailable Unavailable Bijan Pope MD Unavailable Unavailable Bijan Pope MD Unavailable Unavailable Bijan Pope MD Unavailable Unavailable Bijan Pope MD Unavailable Unavailable Bijan Pope MD Unavailable Unavailable Bijan Pope MD Unavailable Unavailable Bijan Pope MD Unavailable Unavailable Bijan Pope MD Unavailable Unavailable Bijan Pope MD Unavailable Unavailable Bijan Pope MD Unavailable Unavailable Bijan Pope MD Unavailable Unavailable Bijan Pope MD Unavailable Unavailable Bijan Pope MD Unavailable Unavailable Bijan Pope MD Unavailable Unavailable Bijan Pope MD Unavailable Unavailable Bijan Pope MD Unavailable Unavailable Bijan Pope MD Unavailable Unavailable Bijan Pope MD Unavailable Unavailable Bijan Pope MD Unavailable Unavailable Bijan Pope MD Unavailable Unavailable Bijan Pope MD Unavailable Unavailable Bijan Pope MD Unavailable Unavailable Bijan Pope MD Unavailable Unavailable Bijan Pope MD Unavailable Unavailable Bijan Pope MD Unavailable Unavailable Bijan Pope MD Unavailable Unavailable Bijan Pope MD Unavailable Unavailable Bijan Pope MD Unavailable Unavailable Bijan Pope MD Unavailable Unavailable Bijan Pope MD Unavailable Unavailable Bijan Pope MD Unavailable Unavailable Bijan Pope MD Unavailable Unavailable Bijan Pope MD Unavailable Unavailable Bijan Pope MD Unavailable Unavailable Bijan Pope MD Unavailable Unavailable Bijan Pope MD Unavailable Unavailable Bijan Pope MD Unavailable Unavailable Bijan Pope MD Unavailable Unavailable Bijan Pope MD Unavailable Unavailable Bijan Pope MD Unavailable Unavailable Bijan Pope MD Unavailable Unavailable MEHRAN, J Cary ANP Unavailable Unavailable MEHRAN, J Cary ANP Unavailable Unavailable MEHRAN, J Cary ANP Unavailable Unavailable MEHRAN, J Cary ANP Unavailable Unavailable MEHRAN, J Cary ANP Unavailable Unavailable MEHRAN, J Cary ANP Unavailable Unavailable MEHRAN, J Cary ANP Unavailable Unavailable MEHRAN, J Cary ANP Unavailable Unavailable MEHRAN, J Cary ANP Unavailable Unavailable MEHRAN, J Cary ANP Unavailable Unavailable MEHRAN, J Cary ANP Unavailable Unavailable MEHRAN, J Cary ANP Unavailable Unavailable MEHRAN, J Cary ANP Unavailable Unavailable MEHRAN, J Cary ANP Unavailable Unavailable MEHRAN, J Cary ANP Unavailable Unavailable MEHRAN, J Cary ANP Unavailable Unavailable MEHRAN, J Cary ANP Unavailable Unavailable MEHRAN, J Cary ANP Unavailable Unavailable MEHRAN, J Cary ANP Unavailable Unavailable MEHRAN, J Cary ANP Unavailable Unavailable MEHRAN, J Cary ANP Unavailable Unavailable MEHRAN, J Cary ANP Unavailable Unavailable MEHRAN, J Cary ANP Unavailable Unavailable MEHRAN, J Cary ANP Unavailable Unavailable MEHRAN, J Cary ANP Unavailable Unavailable MEHRAN, J Cary ANP Unavailable Unavailable MEHRAN, J Cary ANP Unavailable Unavailable MEHRAN, J Cary ANP Unavailable Unavailable MEHRAN, J Cary ANP Unavailable Unavailable MEHRAN, J Cary ANP Unavailable Unavailable MEHRAN, J Cary ANP Unavailable Unavailable MEHRAN, J Cary ANP Unavailable Unavailable MEHRAN, J Cary ANP Unavailable Unavailable MEHRAN, J Cary ANP Unavailable Unavailable MEHRAN, J Cary ANP Unavailable Unavailable MEHRAN, J Cary ANP Unavailable Unavailable MEHRAN, J Cary ANP Unavailable Unavailable MEHRAN, J Cary ANP Unavailable Unavailable MEHRAN, J Cary ANP Unavailable Unavailable MEHRAN, J Cary ANP Unavailable Unavailable MEHRAN, J Cary ANP Unavailable Unavailable MEHARN, J Cary ANP Unavailable Unavailable MEHRAN, J Cary ANP Unavailable Unavailable MEHRAN, J Cary ANP Unavailable Unavailable MEHRAN, J Cary ANP Unavailable Unavailable MEHRAN, J Cary ANP Unavailable Unavailable MEHRAN, J Cary ANP Unavailable Unavailable MEHRAN, J Cary ANP Unavailable Unavailable MEHRAN, J Cary ANP Unavailable Unavailable MEHRAN, J Cary ANP Unavailable Unavailable MEHRAN, J Cary ANP Unavailable Unavailable MEHRAN, J Cary ANP Unavailable Unavailable MEHRAN, J Cary ANP Unavailable Unavailable MEHRAN, J Cary ANP Unavailable Unavailable MEHRAN, J Cary ANP Unavailable Unavailable MEHRAN, J Cary ANP Unavailable Unavailable MEHRAN, J Cary ANP Unavailable Unavailable MEHRAN, J Cary ANP Unavailable Unavailable MEHRAN, J Cary ANP Unavailable Unavailable MEHRAN, J Cary ANP Unavailable Unavailable MEHRAN, J Cary ANP Unavailable Unavailable MEHRAN, J Cary ANP Unavailable Unavailable MEHRAN, J Cary ANP Unavailable Unavailable MEHRAN, J Cary ANP Unavailable Unavailable MEHRAN, J Cary ANP Unavailable Unavailable MEHRAN, J Cary ANP Unavailable Unavailable MEHRAN, J Cary ANP Unavailable Unavailable MEHRAN, J Cary ANP Unavailable Unavailable MEHRAN, J Cary ANP Unavailable Unavailable MEHRAN, J Cary ANP Unavailable Unavailable MEHRAN, J Cray ANP Unavailable Unavailable MEHRAN, J Cary ANP Unavailable Unavailable MEHRAN, J Cary ANP Unavailable Unavailable MEHRAN, J Cary ANP Unavailable Unavailable MEHRAN, J Cary ANP Unavailable Unavailable MEHRAN, J Cary ANP Unavailable Unavailable MEHRAN, J Cary ANP Unavailable Unavailable MEHRAN, J Cary ANP Unavailable Unavailable MEHRAN, J Cary ANP Unavailable Unavailable MEHRAN, J Cary ANP Unavailable Unavailable MEHRAN, J Cary ANP Unavailable Unavailable MEHRAN, J Cary ANP Unavailable Unavailable MEHRAN, J Cary ANP Unavailable Unavailable MEHRAN, J Cary ANP Unavailable Unavailable MEHRAN, J Cary ANP Unavailable Unavailable MEHRAN, J Cary ANP Unavailable Unavailable MEHRAN, J Cary ANP Unavailable Unavailable MEHRAN, J Cary ANP Unavailable Unavailable MEHRAN, J Cary ANP Unavailable Unavailable MEHRAN, J Cary ANP Unavailable Unavailable MEHRAN, J Cary ANP Unavailable Unavailable MEHRAN, J Cary ANP Unavailable Unavailable MEHRAN, J Cary ANP Unavailable Unavailable MEHRAN, J Cary ANP Unavailable Unavailable MEHRAN, J Cary ANP Unavailable Unavailable MEHRAN, J Cary ANP Unavailable Unavailable MEHRAN, J Cary ANP Unavailable Unavailable MEHRAN, J Cary ANP Unavailable Unavailable MEHRAN, J Cary ANP Unavailable Unavailable MEHRAN, J Cary ANP Unavailable Unavailable MEHRNA, J Cary ANP Unavailable Unavailable MEHRAN, J Cary ANP Unavailable Unavailable MEHRAN, J Cary ANP Unavailable Unavailable MEHRAN, J Cary ANP Unavailable Unavailable MEHRAN, J Cary ANP Unavailable Unavailable MEHRAN, J Cary ANP Unavailable Unavailable MEHRAN, J Cary ANP Unavailable Unavailable MEHRAN, J Cary ANP Unavailable Unavailable MEHRAN, J Cary ANP Unavailable Unavailable MEHRAN, J Cary ANP Unavailable Unavailable MEHRAN, J Cary ANP Unavailable Unavailable MEHRAN, J Cary ANP Unavailable Unavailable MEHRAN, J Cary ANP Unavailable Unavailable MEHRAN, J Cary ANP Unavailable Unavailable MEHRAN, J Cary ANP Unavailable Unavailable MEHRAN, J Cary ANP Unavailable Unavailable MEHRAN, J Cary ANP Unavailable Unavailable MEHRAN, J Cary ANP Unavailable Unavailable MEHRAN, J Cary ANP Unavailable Unavailable MEHRAN, J Cary ANP Unavailable Unavailable MEHRAN, J Cary ANP Unavailable Unavailable MEHRAN, J Cary ANP Unavailable Unavailable MEHRAN, J Cary ANP Unavailable Unavailable MEHRAN, J Cary ANP Unavailable Unavailable MEHRAN, J Cary ANP Unavailable Unavailable MEHRAN, J Cary ANP Unavailable Unavailable MEHRAN, J Cary ANP Unavailable Unavailable MEHRAN, J Cary ANP Unavailable Unavailable MEHRAN, J Cary ANP Unavailable Unavailable MEHRAN, J Cary ANP Unavailable Unavailable MEHRAN, J Cary ANP Unavailable Unavailable MEHRAN, J Cary ANP Unavailable Unavailable Re-disclosure Warning The records that you are about to access may contain information from federally-assisted alcohol or drug abuse programs. If such information is present, then the following federally mandated warning applies: This information has been disclosed to you from records protected by federal confidentiality rules (42 CFR part 2). The federal rules prohibit you from making any further disclosure of this information unless further disclosure is expressly permitted by the written consent of the person to whom it pertains or as otherwise permitted by 42 CFR part 2. A general authorization for the release of medical or other information is NOT sufficient for this purpose. The Federal rules restrict any use of the information to criminally investigate or prosecute any alcohol or drug abuse patient.The records that you are about to access may contain highly sensitive health information, the redisclosure of which is protected by Article 27-F of the [facility] Public Health law. If you continue you may have access to information: Regarding HIV / AIDS; Provided by facilities licensed or operated by the [facility] Office of Mental Health; or Provided by the [facility] Office for People With Developmental Disabilities. If such information is present, then the following [facility] mandated warning applies: This information has been disclosed to you from confidential records which are protected by state law. State law prohibits you from making any further disclosure of this information without the specific written consent of the person to whom it pertains, or as otherwise permitted by law. Any unauthorized further disclosure in violation of state law may result in a fine or retirement sentence or both. A general authorization for the release of medical or other information is NOT sufficient authorization for further disc losure. Allergies and Adverse Reactions Type Description Substance Reaction Status Data Source(s ) environmental and seasonal environmental and seasonal enviro nmental and seasonal sneezing, watery eyes, congestion Active eCW1 ([facility]) Drug allergy ProAir HFA 200 ACTUAT Albuterol 0.09 MG/ACTUAT Metered Dose Inhaler [ProAir] extreme fatigue Active eCW1 ([facility]) Triaminic Cold Triaminic Cold Triaminic Cold Rash Active eC W1 ([facility]) Family History Family Member Name Family Member Gender Family Member Status Date o f Status Description Data Source(s) Unknown Unknown Problem [facility]ENT ([facility]) Encounters Encounter Providers Location Date Indications Data Source(s ) Outpatient Attender: Cary Jane 10/2019 03:15:00 PM EDT MEDENT ([facility] ) Outpatient Attender: Tony Pope MD Main Office 02/18/2020 02:30:00 PM EDT [facility] ([facility]) Outpatient Referrer: Cary YING 07/13/2019 09:20:00 AM EST [facility] Outpatient Referrer: Cary YING 07/13/2019 09:08:00 AM EST [facility] Outpatient Referrer: Cary YING 07/07/2019 02:05:00 PM EST [facility] Outpatient Attender: Cary YING Julio C Patinozaid 12:15:00 PM EST MEDENT ([facility] ) [address] [id number] 07/07/2019 12:00:00 AM EST eCW1 ([facility]) Immunizations Vaccine Date Status Description Data Source(s) Influenza, injectable, MDCK, preservative free, jose valent 03/28/2020 04:13:00 PM EDT completed [facility]) Medications Medication Brand Name Start Date Product Form Dose Route Admi nistrative Instructions Pharmacy Instructions Status Indications Reaction Description Data Source(s) Immunization Adminstration,1 Vaccine/Toxoid 03/28/2020 12:00 :00 AM EDT completed MEDENT ([facility]) Medication administered onsite Sulfamethoxazole 40 MG/ML / Trimethoprim 8 MG/ML Oral Suspension Sulfamethoxazole-Trimethoprim 03/28/2020 12:00:00 AM EDT active MEDENT ([facility]) 2 % 03/22/2020 12:00:00 AM EDT ointment 44 APPLY TO AFFECTED AREA(S) TWICE A DAY FOR 7 DAYS APPLY TO AFFECTED AREA(S) TWICE A DAY FOR 7 DAYS SOLD: 03/22/2020 [facility] 200-40 mg/5 mL 03/22/2020 12:00:00 AM EDT suspension 280 TAKE 20ML ( 4 TEASPOONS ) BY MOUTH TWO TIMES A DAY FOR 7 DAYS TAKE 20ML ( 4 TEASPOONS ) BY MOUTH TWO TIMES A DAY FOR 7 DAYS SOLD: 03/22/2020 [facility] 150 mg 07/07/2019 12:00:00 AM EST tablet 1 TAKE ONE TABLET BY MOUTH ONCE FOR 10 DAYS TAKE ONE TABLET BY MOUTH ONCE FOR 10 DAYS SOLD: 07/08/2019 [facility] Fluconazole 150 MG Oral Tablet [Diflucan] Diflucan 150 MG Di flucan 150 MG 07/07/2019 12:00:00 AM EST active 1 tablet eCW1 ([facility]) Insurance Providers Payer name Policy type / Coverage type Policy ID Covered green party ID Covered green party's relationship to vergara Policy Vergara Plan Information SELF PAY ONLY UMR [facility] CARE [id number] SP [id number] UMR O [id number] S [id number] UMR O [id number] S [id number] P Healthcare Commercial [id number] Self [id number] [employer]/Um[employer] (Old) Medigap Part B [id number] Self [id number] Umr (New [employer]) Commercial [id number] Self [id number] [facility]/Multi Medigap Part B [id number] Self [id number] ANSI-Commercial [id number] P Healthcare Commercial [id number] Self [id number] [employer]/Umr (Old) [facility] [id number] Self [id number] R [facility] [id number] SP [id number] ANSI-Commercial [id number] ANSI-Commercial [id number] ANSI-Commercial [id number] ANSI-Commercial [id number] R [facility] CARE [id number] SP [id number] Umr Commercial [id number] Self [id number] [employer] [id number] SP [id number] [employer] [id number] SP [id number] MVP Healthcare Commercial [id number] Self [id number] [place] Ppo Commercial [id number] Self [id number] [employer] PPO O [id number] S [id number] MVP Healthcare Commercial [id number] Self [id number] [employer] Ppo Commercial [id number] Self [id number] [employer] Maintenance Organization (HMO) [id number] Se [id number] [facility] PHCS/Multi Medigap Part B Self MVP Healthcare Commercial Self [employer] Ppo Commercial Self [id number] Problems, Conditions, and Diagnoses Code Display Name Description Problem Type Effective Dates Data Source(s) [id number] Dysphagia Dysphagia Problem 02/18/2020 12:00:00 AM ED T MEDENT ([facility]) Results ID Date Data Source [id number] 03/28/2020 12:00:00 AM EDT [facility] Cary Ying, Kaylin Patient Name:MARVIN [id number] [facility] Date of : 1985[address] Date of Exam: 03/28/2020JOSÉ MIGUEL Macdonald [id number]#: Fax: [phone] EXAM: KNEE LEFT (COMPLETE) X-RAYCLINICAL INFORMATION: Pain and swelling.Five view.The compartments are symmetric and well maintained. There is no acutefracture or destructive osseous lesion.REECE Luu/Teresa you for referring MARVIN ALEJO to our office. Electronically Signed - FANG ALEGRE DO 03/29/20 14:21 Name Value Range Interpretation Code Description Data Sydnie rce(s) Supporting Document(s) ID Date Data Source [id number] 03/28/2020 03:20:00 PM EDT [facility] ([facility]) Name Value Range Interpretation Code Description Data Sydnie rce(s) Supporting Document(s) Bacteria identified in Blood by Culture Laboratory test result [facility] ([facility]) No growth after 72 hours . All specimens observed for 5 days. Results final at that time. No growth after 48 hours . All specimens observed for 5 days. Results final at that time. No growth after 24 hours . All specimens observed for 5 days. Results final at that time. NO GROWTH AFTER 5 DAYS ID Date Data Source [id number] 03/28/2020 03:17:00 PM EDT [facility] Name Value Range Interpretation Code Description Data Sydnie rce(s) Supporting Document(s) Bacteria identified in Blood by Culture Laboratory test result [facility] No growth after 72 hours . All specimens observed for 5 days. Results final at that time. No growth after 48 hours . All specimens observed for 5 days. Results final at that time. No growth after 24 hours . All specimens observed for 5 days. Results final at that time. NO GROWTH AFTER 5 DAYS ID Date Data Source [id number] 03/28/2020 03:14:00 PM EDT [facility] Name Value Range Interpretation Code Description Data Sydnie rce(s) Supporting Document(s) Glucose [Mass/volume] in Serum or Plasma 94 mg/dL 74-99 MEDENT ([facility]) 100-125 mg/dL PRE-DIABETES/FASTING >126 mg/dL DIABETES/FASTING Urea nitrogen [Mass/volume] in Serum or Plasma 15 mg/dL 7-18 [facility] ([facility]) Creatinine 1.1 mg/dL 0.6-1.3 [facility]) Potassium [Moles/volume] in Serum or Plasma 3.4 meq/L 3.5-5.1 [facility] ([facility]) Sodium [Moles/volume] in Serum or Plasma 138 meq/L 136-145 [facility] ([facility]) Chloride [Moles/volume] in Serum or Plasma 100 meq/L 98-107 [facility] ([facility]) Carbon dioxide, total [Moles/volume] in Serum or Plasma 26 meq/L 21 -32 [facility] ([facility]) Calcium [Mass/volume] in Serum or Plasma 8.6 mg/dL 8.5-10.1 [facility] ([facility]) Alkaline phosphatase isoenzyme [Units/volume] in Serum or Pl asma 51 mg/dL 46-116 [facility] ([facility]) Total Bilirubin 0.3 mg/dL 0.2-1.0 [facility] ([facility]) Aspartate aminotransferase [Enzymatic activity/volume] in Serum or Plasma 17 U/L 15-37 [facility] ([facility] ) Alanine aminotransferase [Enzymatic activity/volume] in Seru m or Plasma 21 U/L 12-78 [facility] ([facility]) Albumin [Mass/volume] in Serum or Plasma 4.4 g/dL 3.4-5.0 [facility] ([facility]) Proteinase 3 Ab [Units/volume] in Serum 8.8 g/dL 6.4-8.2 [facility] ([facility]) A/G Ratio 1.00 CALC 1.00-1.90 [facility] Glomerular filtration rate/1.73 sq M pre dicted among non-blacks [Volume Rate/Area] in Serum or Plasma by Creatinine-based formula (MDRD) 57 mL/min [facility] Glomerular filtration rate/1.73 sq M pre dicted among blacks [Volume Rate/Area] in Serum or Plasma by Creatinine-based formula (MDRD) Laboratory test result [facility]) <content>CHRONIC KIDNEY DISEASE STAGING PER NKF</content>
<content></content>
<content>STAGE I & II GFR >= 60 NORMAL TO MILDLY DECREASED</content>
<content>STAGE III GFR 30-59 MODERATELY DECREASED</content>
<content>STAGE IV GFR 15-29 SEVERELY DECREASED</content>
<content>STAGE V GFR <15 VERY LITTLE GFR LEFT</content>
<content>ESRD GFR <15 ON GEOGRAPHIC AREA INTELLIGENCE OFFICER</content>
<content></content> ID Date Data Source [id number] 03/28/2020 03:14:00 PM EDT MEDENT ([facility]) Name Value Range Interpretation Code Description Data Sydnie rce(s) Supporting Document(s) Leukocytes [#/volume] in Blood by Automated count 6.8 x10*3/UL 4.1-10 .9 [facility] ([facility]) Erythrocytes [#/volume] in Blood by Automated count 4.44 x10*6/UL 4.2 0-6.30 [facility] ([facility]) Hemoglobin [Mass/volume] in Blood 13.1 g/dL 12.0-18.0 [facility] ([facility]) Hematocrit [Volume Fraction] of Blood by Automated count 37.7 % 3 7.0-51.0 [facility] ([facility]) MCV 85.1 fL 80.0-97.0 [facility]) MCHC 34.8 g/dL 31.0-38.0 [facility] MCH 29.6 pg 26.0-32.0 [facility]) Erythrocyte distribution width [Ratio] by Automated count 12.0 % 11.6-13.7 [facility] ([facility]) MPV 8.2 FL 7.8-11.0 [facility]) Platelets [#/volume] in Blood by Automated count 329 x10*3/UL 140-440 [facility] ([facility]) Lymph % 23.1 % 10.0-58.5 [facility]) Mid % 7.0 % 1.7-9.3 [facility]) Neut % 69.9 % 37.0-92.0 [facility] Lymph # 1.5 x10*3/UL 0.6-4.1 [facility] ([facility]) Mid # 0.5 x10*3/UL 0.1-0.6 [facility] ([facility]) Neut # 4.8 x10*3/UL 2.0-7.8 [facility] ([facility]) ID Date Data Source [id number] 03/28/2020 12:00:00 AM EDT MEDENT ([facility]) Name Value Range Interpretation Code Description Data Sydnie rce(s) Supporting Document(s) Left Knee Xray Laboratory test result [facility] ([facility]) ID Date Data Source [id number] 07/13/2019 12:00:00 AM EST [facility] Cary Ying, Rnminna Patient Name:MARVIN [id number] [facility] Date of : 1985 [address] Date of Exam: 07/13/2019JOSÉ MIGUEL Macdonald [id number]#: Fax: [phone] EXAM: ESOPHAGUS WITH CONTRAST X-RAYCLINICAL INFORMATION: Dysphagia.The procedure was performed by Adrian Bates [facility], under the directsupervision of Dr. Mariee.All images were viewed with Dr. Mariee at the time of this dictation.A single view chest xray is submitted as a sealer sander film. The superiormediastinal structures are midline. The heart size is within normallimits. The lungs are clear.Liquid barium and gas producing granules were given in the erect positionas well as liquid barium in the prone oblique position in order to performa double contrast esophagram examination.The oral and pharyngeal stages of deglutition are unremarkable. Esophagealtransport was prompt and efficient and there is no esophagitis, stricture,mucosal ring, or hiatal hernia. Gastroesophageal reflux is notdemonstrated on this examination.IMPRESSION:Essentially unremarkable esophagram.This exam is dictated by Adrian Bates, [facility], with Dr. Mariee.Fluoroscopy time was 1 minute 13 seconds at 15 pulses/second. This isequal to 49 seconds continuous fluoroscopy time which is a 33% reduction inradiation.Bayron Mariee, RUSS/Teresa you for referring MARVIN ALEJO to our office. Electronically Signed - BAYRON MARIEE MD 07/13/19 16:18 Name Value Range Interpretation Code Description Data Sydnie rce(s) Supporting Document(s) Procedure Vital Signs ID Date Data Source [id number] Name Value Range Interpretation Code Description Data Source(s) Body mass index (BMI) [Ratio] 22.1 kg/m2 22.1 k g/m2 [facility] ([facility]) Oxygen saturation in Arterial blood by Pulse oximetry 98 % 98 % [facility] ([facility]) Body weight 113.00 [lb_av] 113.00 [lb_av] [facility] Body height 60 [in_i] 60 [in_i] [facility] ([facility]) 5'0" Body temperature 98.4 [degF] 98.4 [degF] [facility] ([facility]) Heart rate 124 /min 124 /min [facility] ([facility]) Diastolic blood pressure 80 mm[Hg] 80 mm[Hg] [facility] ([facility]) Systolic blood pressure 116 mm[Hg] 116 mm[Hg] [facility] ([facility]) Body weight 50.803 kg 50.803 kg [facility] ([facility]) Body mass index (BMI) [Ratio] 21.9 kg/m2 21.9 k g/m2 [facility]) Heart rate 72 /min 72 /min [facility] Diastolic blood pressure 84 mm[Hg] 84 mm[Hg] [facility] ([facility]) Systolic blood pressure 137 mm[Hg] 137 mm[Hg] [facility]) Body weight 112.00 [lb_av] 112.00 [lb_av] [facility] ([facility]) Temp 97.4 Body height 60 [in_i] 60 [in_i] [facility] ([facility]) 5'0" Body mass index (BMI) [Ratio] 22.7 kg/m2 22.7 k g/m2 MEDENT ([facility]) Oxygen saturation in Arterial blood by Pulse oximetry 98 % 98 % MEDENT ([facility]) Body weight 116.00 [lb_av] 116.00 [lb_av] MEDEN T ([facility]) Body height 60 [in_i] 60 [in_i] MEDENT ([facility]) 5'0" Heart rate 91 /min 91 /min MEDENT ([facility]) Diastolic blood pressure 80 mm[Hg] 80 mm[Hg] MEDENT ([facility]) Systolic blood pressure 124 mm[Hg] 124 mm[Hg] M EDENT ([facility]) Diastolic blood pressure 78 mm[Hg] 78 mm[Hg] eCW1 ([facility]) Systolic blood pressure 112 mm[Hg] 112 mm[Hg] e CW1 ([facility]) Body mass index (BMI) [Ratio] 22.46 kg/m2 22.46 kg/m2 W1 ([facility]) Body height 60 [in_us] 60 [in_us] eCW1 ([facility]) Body weight Measured 115 [lb_av] 115 [lb_av] eC W1 ([facility]) Body mass index (BMI) [Ratio] 22.3 kg/m2 22.3 k g/m2 MEDENT ([facility]) Body weight 114.00 [lb_av] 114.00 [lb_av] MEDEN T ([facility]) Body height 60 [in_i] 60 [in_i] [facility] 5'0" Heart rate 90 /min 90 /min MEDENT ([facility]) Diastolic blood pressure 80 mm[Hg] 80 mm[Hg] MEDENT ([facility]) Systolic blood pressure 120 mm[Hg] 120 mm[Hg] M EDENT ([facility]) Patient Treatment Plan of Care Planned Activity Planned Date Details Description Data Source (s) Fluconazole 150 MG Oral Tablet [Diflucan] 07/07/2019 12:00:00 AM ES T eCW1 ([facility])
--- OUTSIDE RECORDS SUMMARY | 2020-07-10 08:50 | CCD ---
Author Author [facility] Organization [facility] Address Unknown Phone Unavailable Care Team Providers Care Corporate Intern Name Role Phone Bijan Pope MD Unavailable [...] J Cary ANP Unavailable Unavailable MEHRAN, J Acry ANP Unavailable Unavailable MEHRAN, J Cary ANP [...] is protected by Article 27-F of the [facility] Public Health law. If you continue you may have access to information: Regarding HIV / AIDS; Provided by facilities licensed or operated by the [facility] Office of Mental Health; or Provided by the [facility] Office for People With Developmental Disabilities. If such information is present, then the following [facility] mandated warning applies: This information has [...] law may result in a fine or senior care sentence or both. A general authorization for the release of medical or other information is NOT sufficient authorization for further disc losure. Allergies and Adverse Reactions Type Description Substance Reaction Status Data Source(s ) environmental and seasonal environmental and seasonal enviro nmental and seasonal sneezing, watery eyes, congestion Active eCW1 ([facility]) Drug allergy ProAir HFA 200 ACTUAT Albuterol 0.09 MG/ACTUAT Metered Dose Inhaler [ProAir] extreme fatigue Active eCW1 ([facility]) Triaminic Cold Triaminic Cold Triaminic Cold Rash Active eC W1 ([facility]) Family History Family Member Name Family Member Gender Family Member Status Date o f Status Description Data Source(s) Unknown Unknown Problem MEDENT ([facility] ) Encounters Encounter Providers Location Date Indications Data Source(s ) Outpatient Attender: Cary Jane 10/2019 03:15:00 PM EDT MEDENT ([facility] ) Outpatient Attender: Tony Pope MD Main Office 02/18/2020 02:30:00 PM EDT MED[facility] ([facility]) Outpatient Referrer: Cary YING 07/13/2019 09:20:00 AM EST [facility] Outpatient Referrer: Cary YING 07/13/2019 09:08:00 AM EST [facility] Outpatient Referrer: Cary YING 07/07/2019 02:05:00 PM EST [facility] Outpatient Attender: Cary YING Julio C Jane 12:15:00 PM EST MEDENT ([facility] ) [address] [id number] 07/07/2019 12:00:00 AM EST eCW1 ([facility]) Immunizations Vaccine Date Status Description Data Source(s) Influenza, injectable, MDCK, preservative free, jose valent 03/28/2020 04:13:00 PM EDT completed [facility]) Medications Medication Brand Name Start Date Product Form Dose Route Admi nistrative Instructions Pharmacy Instructions Status Indications Reaction Description Data Source(s) Immunization Adminstration,1 Vaccine/Toxoid 03/28/2020 12:00 :00 AM EDT completed MEDENT ([facility]) Medication administered onsite Sulfamethoxazole 40 MG/ML / Trimethoprim 8 MG/ML Oral Suspension Sulfamethoxazole-Trimethoprim 03/28/2020 12:00:00 AM EDT active MEDENT ([facility]) 2 % 03/22/2020 12:00:00 AM EDT [...] 12:00:00 AM EST active 1 tablet eCW1 ([facility]) Insurance Providers Payer name Policy type / Coverage type Policy ID Covered green party ID Covered green party's relationship to vergara Policy Vergara Plan Information [facility] [id number] SP [id number] SELF PAY ONLY UMR O [id number] S [id number] UMR O [id number] S [id number] [employer] Commercial [id number] Self [id number] [place] ([facility] [id number] Self [id number] Umr (New [place]) Commercial [id number] Self [id number] [facility]Yash [facility]/Multi Medigap Part B [id number] Self [id number] ANSI-Commercial [id number] [employer] Commercial [id number] Self [id number] [place]/Umr (Old) [facility] Part B [id number] Self [id number] [facility] [id number] SP [id number] ANSI-Commercial [id number] ANSI-Commercial [id number] ANSI-Commercial [id number] ANSI-Commercial [id number] [facility] [id number] SP [id number] Umr Commercial [id number] Self [id number] [place] [id number] SP [id number] [place] [id number] SP [id number] [employer] Commercial [id number] Self [id number] [place] Ppo Commercial [id number] Self [id number] [place] PPO O [id number] S [id number] P Healthcare Commercial [id number] Self [id number] [place] Ppo Commercial [id number] Self [id number] [place] [employer] (HMO) [id number] [facility] [id number] [facility]ash [facility]/Multi Medigap Part B Self [employer] Commercial Self [place] Ppo Commercial Self [id number] Problems, Conditions, and Diagnoses Code Display Name Description Problem Type Effective Dates Data Source(s) [id number] Dysphagia Dysphagia Problem 02/18/2020 12:00:00 AM ED T MEDENT ([facility]) Results ID Date Data Source [id number] 03/28/2020 12:00:00 AM EDT [facility] Cary Ying, Kaylin Patient Name:MARVIN [id number] [facility] Date of : 1985 301 Date [facility]: [facility] [id number]#: Fax: [phone] EXAM: KNEE LEFT (COMPLETE) X-RAYCLINICAL INFORMATION: Pain and swelling.Five view.The compartments are symmetric and well maintained. There is no acutefracture or destructive osseous lesion.REECE Luu/Teresa you for referring MARVIN ALEJO to our office. Electronically Signed - FANG ALEGRE DO 03/29/20 14:21 Name Value Range Interpretation Code Description Data Sydnie rce(s) Supporting Document(s) ID Date Data Source [id number] 03/28/2020 03:20:00 PM EDT [facility] Name Value Range Interpretation Code Description Data Sydnie rce(s) Supporting Document(s) Bacteria identified in Blood by Culture Laboratory test result [facility] ([facility]) No growth after 72 hours . All specimens observed for 5 days. Results final at that time. No growth after 48 hours . All specimens observed for 5 days. Results final at that time. No growth after 24 hours . All specimens observed for 5 days. Results final at that time. NO GROWTH AFTER 5 DAYS ID Date Data Source [id number] 03/28/2020 03:17:00 PM EDT [facility] Name Value Range Interpretation Code Description Data Sydnie rce(s) Supporting Document(s) Bacteria identified in Blood by Culture Laboratory test result [facility] ([facility]) No growth after 72 hours . All specimens observed for 5 days. Results final at that time. No growth after 48 hours . All specimens observed for 5 days. Results final at that time. No growth after 24 hours . All specimens observed for 5 days. Results final at that time. NO GROWTH AFTER 5 DAYS ID Date Data Source [id number] 03/28/2020 03:14:00 PM EDT [facility] Name Value Range Interpretation Code Description Data Sydnie rce(s) Supporting Document(s) Glucose [Mass/volume] in Serum or Plasma 94 mg/dL 74-99 MEDENT ([facility]) 100-125 mg/dL PRE-DIABETES/FASTING >126 mg/dL DIABETES/FASTING Urea nitrogen [Mass/volume] in Serum or Plasma 15 mg/dL 7-18 [facility] ([facility]) Creatinine 1.1 mg/dL 0.6-1.3 [facility] Potassium [Moles/volume] in Serum or Plasma 3.4 meq/L 3.5-5.1 [facility] ([facility]) Sodium [Moles/volume] in Serum or Plasma 138 meq/L 136-145 [facility] ([facility]) Chloride [Moles/volume] in Serum or Plasma 100 meq/L 98-107 [facility] ([facility]) Carbon dioxide, total [Moles/volume] in Serum or Plasma 26 meq/L 21 -32 [facility] ([facility]) Calcium [Mass/volume] in Serum or Plasma 8.6 mg/dL 8.5-10.1 [facility] ([facility]) Alkaline phosphatase isoenzyme [Units/volume] in Serum or Pl asma 51 mg/dL 46-116 [facility] ([facility]) Total Bilirubin 0.3 mg/dL 0.2-1.0 [facility] ([facility]) Aspartate aminotransferase [Enzymatic activity/volume] in Serum or Plasma 17 U/L 15-37 [facility] ([facility] ) Alanine aminotransferase [Enzymatic activity/volume] in Seru m or Plasma 21 U/L 12-78 [facility] ([facility]) Albumin [Mass/volume] in Serum or Plasma 4.4 g/dL 3.4-5.0 [facility] ([facility]) Proteinase 3 Ab [Units/volume] in Serum 8.8 g/dL 6.4-8.2 [facility] ([facility]) A/G Ratio 1.00 CALC 1.00-1.90 [facility] Glomerular filtration rate/1.73 sq M pre dicted among non-blacks [Volume Rate/Area] in Serum or Plasma by Creatinine-based formula (MDRD) 57 mL/min [facility] Glomerular filtration rate/1.73 sq M pre dicted among blacks [Volume Rate/Area] in Serum or Plasma by Creatinine-based formula (MDRD) Laboratory test result [facility] <content>CHRONIC KIDNEY DISEASE STAGING PER NKF</content>
<content></content>
<content>STAGE I & II GFR >= 60 NORMAL TO MILDLY DECREASED</content>
<content>STAGE III GFR 30-59 MODERATELY DECREASED</content>
<content>STAGE IV GFR 15-29 SEVERELY DECREASED</content>
<content>STAGE V GFR <15 VERY LITTLE GFR LEFT</content>
<content>ESRD GFR <15 ON RAISE MINER</content>
<content></content> ID Date Data Source [id number] 03/28/2020 03:14:00 PM EDT MED[facility] ([facility]) Name Value Range Interpretation Code Description Data Sydnie rce(s) Supporting Document(s) Leukocytes [#/volume] in Blood by Automated count 6.8 x10*3/UL 4.1-10 .9 [facility] ([facility]) Erythrocytes [#/volume] in Blood by Automated count 4.44 x10*6/UL 4.2 0-6.30 [facility] ([facility]) Hemoglobin [Mass/volume] in Blood 13.1 g/dL 12.0-18.0 [facility] ([facility]) Hematocrit [Volume Fraction] of Blood by Automated count 37.7 % 3 7.0-51.0 [facility] ([facility]) MCV 85.1 fL 80.0-97.0 [facility] MCHC 34.8 g/dL 31.0-38.0 [facility] MCH 29.6 pg 26.0-32.0 [facility] ([facility]) Erythrocyte distribution width [Ratio] by Automated count 12.0 % 11.6-13.7 [facility] ([facility]) MPV 8.2 FL 7.8-11.0 [facility]) Platelets [#/volume] in Blood by Automated count 329 x10*3/UL 140-440 [facility] ([facility]) Lymph % 23.1 % 10.0-58.5 [facility] Mid % 7.0 % 1.7-9.3 [facility] Neut % 69.9 % 37.0-92.0 [facility] Lymph # 1.5 x10*3/UL 0.6-4.1 [facility] ([facility]) Mid # 0.5 x10*3/UL 0.1-0.6 [facility] ([facility]) Neut # 4.8 x10*3/UL 2.0-7.8 [facility] ([facility]) ID Date Data Source [id number] 03/28/2020 12:00:00 AM EDT MED[facility] ([facility]) Name Value Range Interpretation Code Description Data Sydnie rce(s) Supporting Document(s) Left Knee Xray Laboratory test result ME ELENA ([facility]) ID Date Data Source [id number] 07/13/2019 12:00:00 AM EST [facility] Cary Ying, Rnminna Patient Name:MARVIN [id number] [facility] Date of : 1985[facility] [address] Date of Exam: [facility]/2019[facility] [id number]#: Fax: [phone] EXAM: ESOPHAGUS WITH CONTRAST X-RAYCLINICAL INFORMATION: Dysphagia.The procedure was performed by ROBERT Caba, under the directsupervision of Dr. Mariee.All images were viewed with Dr. Mariee at the time of this dictation.A single view chest xray is submitted as a nutrition intern film. The superiormediastinal structures are midline. The [...] unremarkable esophagram.This exam is dictated by Adrian Bates [facility], with Dr. Mariee.Fluoroscopy time was 1 minute 13 seconds at 15 pulses/second. This isequal to 49 seconds continuous fluoroscopy time which is a 33% reduction inradiation.Bayron Mariee, RUSS/Teresa you for referring MARVIN ALEJO to our office. Electronically Signed - BAYORN MARIEE MD 07/13/19 16:18 Name Value Range Interpretation Code Description Data Sydnie rce(s) Supporting Document(s) Procedure Vital Signs ID Date Data Source [id number] Name Value Range Interpretation Code Description Data Source(s) Body mass index (BMI) [Ratio] 22.1 kg/m2 22.1 k g/m2 [facility] Oxygen saturation in Arterial blood by Pulse oximetry 98 % 98 % [facility] ([facility]) Body weight 113.00 [lb_av] 113.00 [lb_av] [facility] Body height 60 [in_i] 60 [in_i] [facility] ([facility]) 5'0" Body temperature 98.4 [degF] 98.4 [degF] [facility] ([facility]) Heart rate 124 /min 124 /min [facility] ([facility]) Diastolic blood pressure 80 mm[Hg] 80 mm[Hg] [facility] Systolic blood pressure 116 mm[Hg] 116 mm[Hg] M [facility] ([facility]) Body weight 50.803 kg 50.803 kg [facility] Body mass index (BMI) [Ratio] 21.9 kg/m2 21.9 k g/m2 [facility] ([facility]) Heart rate 72 /min 72 /min [facility] Diastolic blood pressure 84 mm[Hg] 84 mm[Hg] [facility]) Systolic blood pressure 137 mm[Hg] 137 mm[Hg] [facility] Body weight 112.00 [lb_av] 112.00 [lb_av] MEDEN T ([facility]) Temp 97.4 Body height 60 [in_i] 60 [in_i] [facility] 5'0" Body mass index (BMI) [Ratio] 22.7 kg/m2 22.7 k g/m2 MEDENT ([facility]) Oxygen saturation in Arterial blood by Pulse oximetry 98 % 98 % [facility] ([facility]) Body weight 116.00 [lb_av] 116.00 [lb_av] MEDEN T ([facility]) Body height 60 [in_i] 60 [in_i] [facility] 5'0" Heart rate 91 /min 91 /min MEDENT ([facility]) Diastolic blood pressure 80 mm[Hg] 80 mm[Hg] [facility] Systolic blood pressure 124 mm[Hg] 124 mm[Hg] M EDENT ([facility]) Diastolic blood pressure 78 mm[Hg] 78 mm[Hg] W1 ([facility]) Systolic blood pressure 112 mm[Hg] 112 mm[Hg] e CW1 ([facility]) Body mass index (BMI) [Ratio] 22.46 kg/m2 22.46 kg/m2 eCW1 ([facility]) Body height 60 [in_us] 60 [in_us] eCW1 ([facility]) Body weight Measured 115 [lb_av] 115 [lb_av] eC W1 ([facility]) Body mass index (BMI) [Ratio] 22.3 kg/m2 22.3 k g/m2 MEDENT ([facility]) Body weight 114.00 [lb_av] 114.00 [lb_av] MEDEN T ([facility]) Body height 60 [in_i] 60 [in_i] [facility] ([facility]) 5'0" Heart rate 90 /min 90 /min [facility] ([facility]) Diastolic blood pressure 80 mm[Hg] 80 mm[Hg] [facility] Systolic blood pressure 120 mm[Hg] 120 mm[Hg] M EDENT ([facility]) Patient Treatment Plan of Care Planned Activity Planned Date Details Description Data Source (s) Fluconazole 150 MG Oral Tablet [Diflucan] 07/07/2019 12:00:00 AM ES T eCW1 ([facility])
--- NOTE | 2020-07-10 09:20 | REP ---
INDICATION: peripheral edema, eval for cardiomegaly, CHF COMPARISON: 05/09/2019. TECHNIQUE: PA/Lateral FINDINGS: Lungs: Clear, no infiltrate. Heart: Normal in size. Mediastinum: Mediastinal silhouette unremarkable. Pleural angles: Unremarkable.. Bones and soft tissues: Unremarkable. IMPRESSION: No acute pulmonary disease. <Electronically signed by Fidel Mclain > 07/10/20 0917
[2020-07-10 09:39] LABS: ALBUMIN 4.1 GM/DL (3.2-5.2); ALT/SGPT 22 U/L (12-78); BILIRUBIN,TOTAL 0.5 MG/DL (0.2-1.0); BLOOD UREA NITROGEN 12 MG/DL (7-18); CALCIUM LEVEL 9.2 MG/DL (8.5-10.1); CARBON DIOXIDE LEVEL 25 MEQ/L (21-32); CHLORIDE LEVEL 105 MEQ/L (98-107); CREATININE FOR GFR 0.88 MG/DL (0.55-1.30); GLOMERULAR FILTRATION RATE > 60.0 (>60); GLUCOSE, FASTING 95 MG/DL (70-100); POTASSIUM SERUM 3.9 MEQ/L (3.5-5.1); SODIUM LEVEL 139 MEQ/L (136-145); TOTAL PROTEIN 7.9 GM/DL (6.4-8.2)
[2020-07-10 10:11] VITALS: BP 117/68
== END 2020-07-10 10:17 | disposition home or self-care (01) ==
LOC: M ED 08:14
DX: R60.0 Localized edema (principal)

== ENCOUNTER → 2020-07-26 | Outpatient (REF) | payer OTHER ==
[~2020-07-26] MED LIST changes: +FLON1SPR NARES
== END ==
LOC: M LAB REF 16:45
PROVIDERS: ATTEND Nurse Practitioner Adult Health
DX: R05 Cough (principal)

== ENCOUNTER → 2021-04-26 | Outpatient (REF) | payer OTHER | LOC: M SFHCWAGY 13:01 | PROVIDERS: ATTEND Obstetrics & Gynecology | DX: Z12.4 Encounter for screening for malignant neoplasm of cervix (principal) | CPT/HCPCS: 87624; G0123 ==

== ENCOUNTER 2021-09-14 16:21 | Emergency (ER) | payer OTHER ==
[~2021-09-14] VITALS: Ht 152.4 cm; Wt 54.1 kg
[2021-09-14 18:58] VITALS: BP 119/75
== END 2021-09-14 19:01 | disposition home or self-care (01) ==
LOC: M ED 16:21
DX: I10 Essential (primary) hypertension (principal); T44.5X5A Adverse effect of predominantly beta-adrenoreceptor agonists, initial encounter; J30.2 Other seasonal allergic rhinitis

== ENCOUNTER → 2021-10-11 | Outpatient (REF) | payer OTHER ==
[2021-10-11 12:36] LABS: AMYLASE 40 U/L (25-115); LIPASE 148 U/L (73-393)
[2021-10-11 12:45] LABS: HCG, SERUM QUALITATIVE NEGATIVE (NEGATIVE)
== END ==
LOC: M LAB REF 11:46
PROVIDERS: ATTEND Nurse Practitioner Adult Health
DX: R10.9 Unspecified abdominal pain (principal)

== ENCOUNTER → 2022-04-10 | Outpatient (CLI) | payer OTHER | LOC: M WUC 13:16 | PROVIDERS: ATTEND Nurse Practitioner Adult Health | DX: R05.9 Cough, unspecified (principal) ==

== ENCOUNTER → 2023-08-19 | Outpatient (CLI) | payer OTHER | LOC: M WUC 12:04 | PROVIDERS: ATTEND Nurse Practitioner Adult Health | DX: M54.89 Other dorsalgia (principal) ==

== ENCOUNTER → 2024-02-18 | Outpatient (REF) | payer OTHER | LOC: M SFHCWAGY 12:38 | PROVIDERS: ATTEND Obstetrics & Gynecology | DX: Z12.4 Encounter for screening for malignant neoplasm of cervix (principal) ==

== ENCOUNTER → 2025-03-01 | Outpatient (REF) | payer OTHER ==
[~2025-03-01] MED LIST changes: -IBUP-1022 PO; +IBUP600T42 PO
[2025-03-03 13:24] LABS: HPV APTIMA Not Detected (Not Detected)
== END ==
LOC: M SFHCWAGY 12:47
PROVIDERS: ATTEND Obstetrics & Gynecology
DX: Z12.4 Encounter for screening for malignant neoplasm of cervix (principal)
CPT/HCPCS: 87624; G0123